=== PATIENT | male | born 1945 | race Caucasian/White ===

== ENCOUNTER 2018-04-10 11:09 | Outpatient (CLI) | payer MEDICARE, SELFPAY ==
[2018-04-10 13:35] LABS: Cholesterol 141 mg/dL (50-200); HDL Cholesterol 55 mg/dL (40-60); LDL CHOLESTEROL 80 mg/dL (<100); Triglyceride 70 mg/dL (30-150)
[2018-04-10 14:11] LABS: Hemoglobin A1C 5.4 % (4.5-6.2)
== END 2018-04-10 11:29 ==
PROVIDERS: PCP Emergency Medicine; Visit Provider Emergency Medicine
DX: R73.01 Impaired fasting glucose (principal); I25.10 Atherosclerotic heart disease of native coronary artery without angina pectoris
CPT/HCPCS: 36415; 80061; 83721; 83036

== ENCOUNTER 2018-04-16 01:16 | Outpatient (CLI) | payer MEDICARE, SELFPAY ==
--- NOTE | 2018-04-16 14:42 | DI.COMBO_ITS ---
SYMPTOMS/DIAGNOSIS: RT BREAST MASS, N63.0 MAMMOGRAM AND RIGHT BREAST ULTRASOUND: A marker was placed over the area of the palpable abnormality at the medial edge of the right breast. The breasts are composed of fatty density tissue, breast density Category A. No suspicious masses or suspicious microcalcifications are seen. No abnormality is seen in the area marked. Right breast ultrasound shows a small ovoid hypoechoic nodule measuring 1.5 x 1.7 x 0.6 cm, consistent with a small lipoma. There is blood flow within it. No mass or fluid collection is seen. IMPRESSION: Category 2, negative mammogram and right breast ultrasound with benign findings of a small lipoma. MQSA ASSESSMENT OF FINDINGS: Negative with benign findings. Category 2. Patient will receive a letter notifying them of these results. BI-RAD category A. The breasts are almost entirely fatty.
== END 2018-04-16 01:36 ==
PROVIDERS: PCP Emergency Medicine; Visit Provider Emergency Medicine
DX: N63.10 Unspecified lump in the right breast, unspecified quadrant (principal); D24.1 Benign neoplasm of right breast
CPT/HCPCS: 76642; 77062; 77066; G0279

== ENCOUNTER 2018-09-29 10:23 | Outpatient (CLI) | payer MEDICARE, SELFPAY ==
[2018-09-30 10:12] LABS: PSA, Screening 1.8 ng/ml (0-6.5)
== END 2018-09-29 10:43 ==
PROVIDERS: PCP Emergency Medicine; Visit Provider Emergency Medicine
DX: Z12.5 Encounter for screening for malignant neoplasm of prostate (principal)
CPT/HCPCS: 36415; 84153

== ENCOUNTER 2018-11-23 08:23 | Day surgery (SDC) | payer MEDICARE, SELFPAY ==
--- NOTE | 2018-11-22 17:40 | W.PIPPEYE ---
History of Present Illness Chief Complaint: Progressive decreased vision, left eye Narrative: The patient is a 73-year-old male with history of progressive decreased vision in both eyes at both distance and near. He has significant difficulty with glare from headlights at night. On examination he was noted to have moderately advanced bilateral nuclear cataracts with uncorrected vision of 20/25 OD, 20/200 OS. The option of cataract surgery was offered to the patient and he wished to proceed. NOTE: The Chief Complaint, HPI, Past Medical History, Past Surgical History, Family History, Social History, Medications, and complete Ophthalmic Exam with detailed Assessment and Plan have already been documented in the patient's outpatient ophthalmic record and are not covered again in detail here. PFSH Family History Mother Essential hypertension Heart disease Myocardial infarction Father Diabetes Essential hypertension Neoplasm Stroke Brother Essential hypertension Son No problems noted. Daughter No problems noted. Family History Corneal dystrophy Social History Smoking/Tobacco Use Status: Former Tobacco Use Alcohol Intake: current Alcohol Intake frequency: a few times a week Drug use: Never Substance use type: does not use Household members: other Details: 2 What type of physical activity do you participate in: none Do you feel safe at home: Yes Do you feel safe in your relationship?: Yes Meds Home Medications Medication Instructions Recorded Confirmed Type aspirin 81 mg PO DAILY tab-cap 01/06/13 11/18/18 History amlodipine 5 mg PO DAILY #90 tab-cap 12/10/17 11/18/18 Rx metoprolol succinate [Toprol Xl] 25 mg PO DAILY #90 tab-cap 12/23/17 11/18/18 Rx doxazosin [Cardura] 4 mg PO HS #90 tab-cap 01/06/18 11/18/18 Rx metoprolol succinate ER 50 mg 50 mg PO DAILY 03/24/18 11/18/18 History tablet,extended release 24 hr magnesium 250 mg tablet 250 mg PO DAILY 04/10/18 11/18/18 History omeprazole 20 mg capsule,delayed 20 mg PO DAILY #90 tab-cap 09/09/18 11/18/18 Rx release atorvastatin 40 mg tablet 40 mg PO HS #90 tab 10/08/18 11/18/18 Rx Allergies Allergy/AdvReac Type Severity Reaction Status Date / Time oxycodone AdvReac Mild NAUSEA/VOMI Verified 11/18/18 11:08 TING Exam OCULAR EXAM:: Most recent ocular examination is significant for uncorrected vision of 20/25 OD, 20/200 OS. Intraocular pressure is 14 OD, 13 OS. Extraocular motility is normal. Pupils equal, round, and reactive without afferent pupillary defect slit-lamp examination is significant for pupils dilating to 5.5 mm OU. 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 A 3+ brunescent nuclear cataract is present OU. Dilated funduscopic examination shows disc cupping of 0.4 OU with good color. The optic nerves have good perfusion and normal color. The retinal vasculature is normal without significant tortuosity or abnormality. The maculas are normal in appearance with normal contour and foveal reflex appropriate for age. The peripheral retina and vitreous are normal. BRIGHTNESS ACUITY TESTING (BAT):: Brightness acuity testing of the left eye off is 20/30. On low and medium is 20/125. On high is 20/200. Assessment and Plan (1) Nuclear sclerotic cataract of left eye: Current visit: No Status: Acute Assessment: Visually significant cataract, left eye. Plan: Cataract extraction with intraocular lens implantation, left eye Note: NOTE:: The details of the planned surgery, including the risks, indications,limitations,expectations,outcome and possible complications were explained to the patient. The patient understands the complications including, but not limited to: infection, hemorrhage, posterior dislocation of the lens or nuclear fragments which may require the intervention of a vitreoretinal surgeon, possible loss of the eye, or from anesthetic complications. The patient has been made aware of the option of not having surgery, that vision following surgery may not be equal to that prior to surgery, and that the planned surgery may not achieve the intended results. Following this discussion, which the patient appeared to understand, the patient wishes to proceed with cataract surgery with lens implantation of the affected eye to improve and maximize vision.
[2018-11-23 08:41] VITALS: BP 150/77; PULSE 69; RESP 16; TEMP 36.6; O2SAT 96
[2018-11-23] MEDS: Tetracaine 0.5% 4 ML BTL OS ×4 (08:45→09:54)
[2018-11-23] MEDS: Tropicam./Phenyleph. (1/2.5%) 5 ML BTL OS ×3 (08:46→08:56)
--- NOTE | 2018-11-23 09:43 | W.PM.DSUDISC ---
Discharge Plan Disposition Patient Disposition: HOME Condition: Stable Discharge Details Attending Provider: Seth Keller Primary Care Provider: Oliver Gandhi Home Meds and New Rx's Prescriptions: No Action magnesium 250 mg tablet 250 mg PO DAILY RF: 0 aspirin 81 MG tablet,delayed release (DR/EC) 81 mg PO DAILY RF: 0 amlodipine 5 MG tablet 5 mg PO DAILY Qty: 90 RF: 4 metoprolol succinate [Toprol XL] 25 MG tablet extended release 24 hr 25 mg PO DAILY Qty: 90 RF: 3 doxazosin [Cardura] 4 MG tablet 4 mg PO HS Qty: 90 RF: 4 metoprolol succinate 50 mg tablet extended release 24 hr 50 mg PO DAILY RF: 0 omeprazole 20 mg capsule,delayed release(DR/EC) 20 mg PO DAILY Qty: 90 RF: 4 atorvastatin [Lipitor] 40 mg tablet 40 mg PO HS Qty: 90 RF: 4 Discharge Instructions Stand Alone Forms: Post-op Topical Cataract, Shani Palomino (DSU) Discharge Orders Discharge Orders: Discharge Order (Routine); Ordered 11/23/18 Ordered By: Seth Keller DS: Diagnosis Discharge Diagnosis (1) Nuclear sclerotic cataract of left eye: Status: Resolved (2) Status post cataract extraction and insertion of intraocular lens of left eye: Status: Chronic
--- NOTE | 2018-11-23 09:44 | ROE_ITS ---
Date of service: 11/23/18 Operative Note PRE-OP DIAGNOSIS: Cataract, left eye POST-OP DIAGNOSIS: same PROCEDURE: Cataract extraction using phacoemulsification with intraocular lens implant, left eye SURGEON: Seth Keller ANESTHESIA: MAC and local (sub-tenon's anesthetic infiltration) PATHOLOGY: none sent COMPLICATIONS: None Patient was transported to: same day Patient's condition: stable Implants: Luis [employer] / [employer] Tecnis [id number] Indications: Progressive decreased vision due to cataract, left eye Procedure Description: CATARACT SURGERY OPERATIVE REPORT PREOPERATIVE DIAGNOSIS: Dense nuclear cataract, left eye POSTOPERATIVE DIAGNOSIS: Same OPERATION: Cataract extraction using phacoemulsification with posterior chamber intraocular lens implant, left eye. IOL: IOL Pharmacy Laboratory Technician/Model: [employer] / PANKAJ Tecnis [id number] IOL Power: + 19.50 diopters IOL Serial Number: [id number] Optic Diameter: 6.0mm Haptic/Overall Diameter: 13.0mm PHACO INFO: Paramjit [employer] Vision System with OZil and Active Fluidics Cumulative Dispersed Energy (CDE): 21.43 seconds SURGEON: Seth Keller MD, EILEEN ANESTHESIA: Monitored Anesthesia Care (MAC), with local sub-tenon's anesthetic infiltration COMPLICATIONS: None SPECIMENS: None INDICATIONS FOR PROCEDURE: The patient is a 73-year-old gentleman who presented with complaints of diminished visual acuity in his left eye. He is noted to have a dense nuclear cataract with visual acuity of 20/200. The option of cataract surgery was offered to the patient and he wished to proceed. PROCEDURE: The correct surgical eye was identified and marked as the left eye and the pupil was dilated in the preoperative area using mydriatics and cyclo plegics. The dilated pupil size was 6.5 mm. Oral sedation was administered in the form of an Imprimis MKO Melt (midazolam 3mg/ketamine 25mg/ondansetron 2mg). The patient was brought to the operating room where cardiopulmonary monitoring was instituted and surgical time-out was performed, confirming the correct operative eye and IOL power. Topical anesthesia was administered and ophthalmic povidone-iodine 5% was instilled into the conjunctival fornices. Lidocaine gel was applied to the cornea and the j carlos-ocular area was prepped with Betadine 10% solution and draped in the usual sterile fashion for intraocular surgery, including an aperture drape. A Tegaderm transparent film dressing was cut in half and used to cover the lashes and lid margins. Care was taken to sequester the lashes and lid margins under the Tegaderm dressing. A lid speculum was placed between the lids of the operative eye and the Jolly-Tess operating microscope was maneuvered into position. Kuldeep scissors were then used to make a conjunctival buttonhole approximately 6mm posterior to the limbus in the inferonasal quadrant. Blunt dissection was carried out to expose bare sclera, and a blunt-tipped sub-tenon?s anesthesia cannula was introduced and passed posteriorly along the globe where non- preserved plain lidocaine was injected into posterior sub-Tenon?s space. A sideport knife was used to make a paracentesis port superior/superiortemporal, and the anterior chamber was filled with Viscoat. A 2.4mm keratome knife was used to create a half-thickness groove at the limbus and then to construct a t hree-plane near-clear corneal tunnel extending 2.0mm into clear cornea in the temporal position. . A flap was raised on the anterior capsule and capsulorhexis forceps were used to complete a continuous curvilinear capsulorhexis of []mm. Balanced salt solution was then used to perform cortical cleaving hydrodissection and nuclear hydrodelineation until the lens could be freely rotated within the capsular bag. The lens nucleus was then disassembled and removed within the capsular bag and iris plane using phacoemulsification. Residual cortical material was removed using the 45-degree angled silicone I/A tip with 0.3mm port. The posterior capsule was carefully polished to remove as much residual lens epithelial cells as safely possible. The capsular bag was then inflated and the anterior chamber deepened with ProVisc. The lens implant described above was inserted into the capsular bag using the PANKAJ [employer] Injector. A Kuglen hook was used to dial the IOL into position. Residual viscoelastic was then removed first from posterior to the IOL, then from the anterior chamber using the I/A handpiece. The lens implant was noted to center nicely within the capsular bag. The incisions were stromally hydrated, and the anterior chamber was reformed using BSS. Then 0.4cc of moxifloxacin 1.5mg/ml were injected into the capsular bag and anterior chamber. The incisions were checked with a Weck spear and found to be secure. Several drops of ophthalmic povidone-iodine 5% were then applied to the eye followed by two drops of Imprimis combination prednisolone/gatifloxacin/bromfenac solution. The drapes were removed and a clear plastic protective eye shield was placed over the eye. The patient was then returned to Same Day Surgery in stable condition.
[2018-11-23] MEDS: Lidocaine 2% Jelly 6 ML SYR (09:54)
[2018-11-23] MEDS: Povidone-Iodine Ophth 30 ML BTL (09:54)
[2018-11-23] MEDS: Balanced Salt Soln.-PLUS 500 ML BAG (09:59)
[2018-11-23] MEDS: Lidocaine 1% Pres-Free 5 ML VIAL (10:00)
[2018-11-23] MEDS: Duovisc Viscoelastic System EACH 1 EACH (10:01)
[2018-11-23 10:50] VITALS: BP 116/67; PULSE 61; RESP 16; TEMP 37.1; O2SAT 94
== END 2018-11-23 11:11 | disposition home or self-care (01) ==
PROVIDERS: PCP Emergency Medicine; Visit Provider Ophthalmology
PROC: (CPT 66984; principal; 2018-11-23 10:30)
DX: H25.12 Age-related nuclear cataract, left eye (principal); I10 Essential (primary) hypertension; K21.9 Gastro-esophageal reflux disease without esophagitis
CPT/HCPCS: 66984; V2632

== ENCOUNTER 2018-12-07 09:11 | Day surgery (SDC) | payer MEDICARE, SELFPAY ==
--- NOTE | 2018-12-06 18:12 | POEE_ITS ---
History of Present Illness Chief Complaint: Progressive decreased vision, right eye Narrative: The patient is a 73-year-old male with history of progressive decreased vision in both eyes at both distance and near. He notes significant difficulty with glare from driving at night. 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 He was significantly symptomatic that he desired cataract surgery which was performed in the left eye on 11/23/2018. Postoperatively he has regained uncorrected vision of 20/20 in the left eye. He now presents for cataract surgery in the right eye. NOTE: The Chief Complaint, HPI, Past Medical History, Past Surgical History, Family History, Social History, Medications, and complete Ophthalmic Exam with detailed Assessment and Plan have already been documented in the patient's outpatient ophthalmic record and are not covered again in detail here. PFSH Family History Mother Essential hypertension Heart disease Myocardial infarction Father Diabetes Essential hypertension Neoplasm Stroke Brother Essential hypertension Son No problems noted. Daughter No problems noted. Family History Corneal dystrophy Social History Smoking/Tobacco Use Status: Former Tobacco Use Alcohol Intake: current Alcohol Intake frequency: a few times a week Drug use: Never Substance use type: does not use Details: alcohol last night Household members: other Details: 2 What type of physical activity do you participate in: none Do you feel safe at home: Yes Do you feel safe in your relationship?: Yes Meds Home Medications Medication Instructions Recorded Confirmed Type aspirin 81 mg PO DAILY tab-cap 01/06/13 11/23/18 History amlodipine 5 mg PO DAILY #90 tab-cap 12/10/17 11/18/18 Rx metoprolol succinate [Toprol Xl] 25 mg PO DAILY #90 tab-cap 12/23/17 11/18/18 Rx doxazosin [Cardura] 4 mg PO HS #90 tab-cap 01/06/18 11/18/18 Rx metoprolol succinate ER 50 mg 50 mg PO DAILY 03/24/18 11/18/18 History tablet,extended release 24 hr magnesium 250 mg tablet 250 mg PO DAILY 04/10/18 11/23/18 History omeprazole 20 mg capsule,delayed 20 mg PO DAILY #90 tab-cap 09/09/18 11/18/18 Rx release atorvastatin 40 mg tablet 40 mg PO HS #90 tab 10/08/18 11/18/18 Rx Allergies Allergy/AdvReac Type Severity Reaction Status Date / Time oxycodone AdvReac Mild NAUSEA/VOMI Verified 11/23/18 08:37 TING Exam OCULAR EXAM:: Most recent ocular examination is significant for uncorrected vision of 20/25 OD, 20/20 OS. Intraocular pressure is 14 OD, 13 OS. Extraocular motility is normal. Pupils equal, round, and reactive without afferent pupillary defect. Slit-lamp examination is significant for fine cornea l endothelial guttata. A well-positioned PCIOL is present OS. A 3+ nuclear with 1+ Nessen cataract is present OD. Dilated funduscopic examination shows disc cupping of 0.4 OD 0.5 OS with good color. The vessels, macula, peripheral retina and vitreous is normal OU. BRIGHTNESS ACUITY TESTING (BAT):: Brightness acuity testing of the right eye off is 20/25. Low is 20/30. Medium is 20/30. High is 20/40. Assessment and Plan (1) Nuclear sclerotic cataract of right eye: Current visit: No Status: Acute Assessment: Visually significant cataract, right eye. Plan: Cataract extraction with intraocular lens implantation, right eye Note: NOTE:: The details of the planned surgery, including the risks, indications,limitations,expectations,outcome and possible complications were explained to the patient. The patient understands the complications including, but not limited to: infection, hemorrhage, posterior dislocation of the lens or nuclear fragments which may require the intervention of a vitreoretinal surgeon, possible loss of the eye, or from anesthetic complications. The patient has been made aware of the option of not having surgery, that vision following surgery may not be equal to that prior to surgery, and that the planned surgery may not achieve the intended results. Following this discussion, which the patient appeared to understand, the patient wishes to proceed with cataract surgery with lens implantation of the affected eye to improve and maximize vision.
[2018-12-07 09:43] VITALS: BP 149/76; PULSE 67; RESP 16; TEMP 36.6; O2SAT 95
[2018-12-07] MEDS: Tetracaine 0.5% 4 ML BTL OD ×4 (09:47→10:57)
[2018-12-07] MEDS: Tropicam./Phenyleph. (1/2.5%) 5 ML BTL OD ×3 (09:48→09:57)
[2018-12-07] MEDS: Lidocaine 2% Jelly 6 ML SYR (10:57)
[2018-12-07] MEDS: Povidone-Iodine Ophth 30 ML BTL ×2 (10:57→11:30)
[2018-12-07] MEDS: Duovisc Viscoelastic System EACH 1 EACH (11:03)
[2018-12-07] MEDS: Balanced Salt Soln.-PLUS 500 ML BAG (11:03)
[2018-12-07] MEDS: Lidocaine 1% Pres-Free 5 ML VIAL (11:03)
--- NOTE | 2018-12-07 11:35 | W.PM.DSUDISC ---
Discharge Plan Disposition Patient Disposition: HOME Condition: Stable Discharge Details Attending Provider: Seth Keller Primary Care Provider: Oliver Gandhi Home Meds and New Rx's Prescriptions: No Action magnesium 250 mg tablet 250 mg PO DAILY RF: 0 aspirin 81 MG tablet,delayed release (DR/EC) 81 mg PO DAILY RF: 0 amlodipine 5 MG tablet 5 mg PO DAILY Qty: 90 RF: 4 metoprolol succinate [Toprol XL] 25 MG tablet extended release 24 hr 25 mg PO DAILY Qty: 90 RF: 3 doxazosin [Cardura] 4 MG tablet 4 mg PO HS Qty: 90 RF: 4 metoprolol succinate 50 mg tablet extended release 24 hr 50 mg PO DAILY RF: 0 omeprazole 20 mg capsule,delayed release(DR/EC) 20 mg PO DAILY Qty: 90 RF: 4 atorvastatin [Lipitor] 40 mg tablet 40 mg PO HS Qty: 90 RF: 4 Discharge Instructions Stand Alone Forms: Post-op Topical Cataract, Shani Palomino (DSU) Discharge Orders Discharge Orders: Discharge Order (Routine); Ordered 12/07/18 Ordered By: Seth Keller DS: Diagnosis Discharge Diagnosis (1) Nuclear sclerotic cataract of right eye: Status: Resolved (2) Status post cataract extraction and insertion of intraocular lens of right eye: Status: Chronic
--- NOTE | 2018-12-07 11:37 | W.PM.OP ---
Date of service: 12/07/18 Time of Service: 11:37 Operative Note PRE-OP DIAGNOSIS: Cataract, right eye PROCEDURE: Cataract extraction using phacoemulsification with intraocular lens implant, right eye SURGEON: Seth Keller ANESTHESIA: MAC and local (sub-tenon's anesthetic infiltration) ESTIMATED BLOOD LOSS: 0 PATHOLOGY: none sent COMPLICATIONS: None Patient was transported to: same day Patient's condition: stable Implants: Luis [employer] / [employer] Tecnis ZCB00 intraocular lens Indications: Progressive decreased vision due to cataract, right eye Procedure Description: CATARACT SURGERY OPERATIVE REPORT PREOPERATIVE DIAGNOSIS: Dense nuclear cataract, right eye POSTOPERATIVE DIAGNOSIS: Same OPERATION: Cataract extraction using phacoemulsification with posterior chamber intraocular lens implant, right eye. 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 He has become increasingly symptomatic from cataract that he desires cataract surgery and attempt to improve and maximize his vision. He has already undergone cataract surgery in the left eye and is doing well postoperatively. He now presents for cataract surgery in the right eye. PROCEDURE: The correct surgical eye was identified and marked as the right eye and the pupil was dilated in the preoperative area using mydriatics and cycloplegics. The dilated pupil size was 6.5 mm. Oral sedation was administered in the form of an Imprimis MKO Melt (midazolam 3mg/ketamine 25mg/ondansetron 2mg). The patient was brought to the operating room where cardiopulmonary monitoring was instituted and surgical time-out was performed, confirming the correct operative eye and IOL power. Topical anesthesia was administered and ophthalmic povidone-iodine 5% was instilled into the conjunctival fornices. Lidocaine gel was applied to the cornea and the j carlos-ocular area was prepped with Betadine 10% solution and draped in the usual sterile fashion for intraocular surgery, including an aperture drape. A Tegaderm transparent film dressing was cut in half and used to cover the lashes and lid margins. Care was taken to sequester the lashes and lid margins under the Tegaderm dressing. A lid speculum was placed between the lids of the operative eye and the Jolly-Tess operating microscope was maneuvered into position. Kuldeep scissors were then used to make a conjunctival buttonhole approximately 6mm posterior to the limbus in the inferonasal quadrant. Blunt dissection was carried out to expose bare sclera, and a blunt-tipped sub-tenon?s anesthesia cannula was introduced and passed posteriorly along the globe where non-preserved plain lidocaine was injected into posterior sub-Tenon?s space. A sideport knife was used to make a paracentesis port inferiortemporally, and the anterior chamber was filled with Viscoat. A 2.4mm keratome knife was used to create a half-thickness groove at the limbus and then to construct a three-plane near-clear corneal tunnel extending 2.0mm into clear cornea in the superiortemporal position. . A flap was raised on the anterior capsule and capsulorhexis forceps were used to complete a continuous curvilinear capsulorhexis of 5.0 mm. Balanced salt solution was then used to perform cortical cleaving hydrodissection and nuclear hydrodelineation until the lens could be freely rotated within the capsular bag. The lens nucleus was then disassembled and removed within the capsular bag and iris plane using phacoemulsification. Additional Viscoat was used during removal of the nuclear quadrants to protect the corneal endothelium. Residual cortical material was removed using the I/A handpiece. The posterior capsule was carefully polished to remove as much residual lens epithelial cells as safely possible. The capsular bag was then inflated and the anterior chamber deepened with Provisc. The lens implant described above was inserted into the capsular bag using the PANKAJ [place] Injector. A Kuglen hook was used to dial the IOL into position. Residual viscoelastic was then removed first from posterior to the IOL, then from the anterior chamber using the I/A handpiece. The lens implant was noted to center nicely within the capsular bag. The incisions were stromally hydrated, and the anterior chamber was reformed using BSS. Then 0.4cc of moxifloxacin 1.5mg/ml were injected into the capsular bag and anterior chamber. The incisions were checked with a Weck spear and found to be secure. Several drops of ophthalmic povidone-iodine 5% were then applied to the eye followed by two drops of Imprimis combination prednisolone/gatifloxacin/bromfenac solution. The drapes were removed and a clear plastic protective eye shield was placed over the eye. The patient was then returned to Same Day Surgery in stable condition.
--- NOTE | 2018-12-07 11:40 | ROE_ITS ---
Date of service: 12/07/18 Time of Service: 11:37 Operative Note PRE-OP DIAGNOSIS: Cataract, right eye PROCEDURE: Cataract extraction using phacoemulsification with intraocular lens implant, right eye SURGEON: Seth Keller ANESTHESIA: MAC and local (sub-tenon's anesthetic infiltration) ESTIMATED BLOOD LOSS: 0 PATHOLOGY: none sent COMPLICATIONS: None Patient was transported to: same day Patient's condition: stable Implants: [employer] / [employer] Tecnis ZCB00 intraocular lens Indications: Progressive decreased vision due to cataract, right eye Procedure Description: CATARACT SURGERY OPERATIVE REPORT PREOPERATIVE DIAGNOSIS: Dense nuclear cataract, right eye POSTOPERATIVE DIAGNOSIS: Same OPERATION: Cataract extraction using phacoemulsification with posterior chamber intraocular lens implant, right eye. IOL: IOL Quality Management Coordinator/Model: [employer] / PANKAJ Tecnis ZCB00 IOL Power: + 20.50 diopters IOL Serial Number: [id number] Optic Diameter: 6.0mm Haptic/Overall Diameter: 13.0mm PHACO INFO: Paramjit Onyvaxurion Vision System with OZil and Active [employer]uidics Cumulative Dispersed Energy (CDE): 22.52 seconds SURGEON: Seth Keller MD, EILEEN ANESTHESIA: Monitored Anesthesia Care (MAC), with local sub-tenon's anesthetic infiltration COMPLICATIONS: None SPECIMENS: None INDICATIONS FOR PROCEDURE: The patient is a 73-year-old male with history of dense bilateral nuclear cataracts as well as corneal endothelial dystrophy. He has become increasingly symptomatic from cataract that he desires cataract surgery and attempt to improve and maximize his vision. He has already undergone cataract surgery in the left eye and is doing well postoperatively. He now presents for cataract surgery in the right eye. PROCEDURE: The correct surgical eye was identified and marked as the right eye and the pupil was dilated in the preoperative area using mydriatics and cycloplegics. The dilated pupil size was 6.5 mm. Oral sedation was administered in the form of an Imprimis MKO Melt (midazolam 3mg/ketamine 25mg/ondansetron 2mg). The patient was brought to the operating room where cardiopulmonary monitoring was instituted and surgical time-out was performed, confirming the correct operative eye and IOL power. Topical anesthesia was administered and ophthalmic povidone-iodine 5% was instilled into the conjunctival fornices. Lidocaine gel was applied to the cornea and the j carlos-ocular area was prepped with Betadine 10% solution and draped in the usual sterile fashion for intraocular surgery, including an aperture drape. A Tegaderm transparent film dressing was cut in half and used to cover the lashes and lid margins. Care was taken to sequester the lashes and lid margins under the Tegaderm dressing. A lid speculum was placed between the lids of the operative eye and the Jolly-Tess operating microscope was maneuvered into position. Kuldeep scissors were then used to make a conjunctival buttonhole approximately 6mm posterior to the limbus in the inferonasal quadrant. Blunt dissection was carried out to expose bare sclera, and a blunt-tipped sub-tenon?s anesthesia cannula was introduced and passed posteriorly along the globe where non- preserved plain lidocaine was injected into posterior sub-Tenon?s space. A sideport knife was used to make a paracentesis port inferiortemporally, and the anterior chamber was filled with Viscoat. A 2.4mm keratome knife was used to create a half-thickness groove at the limbus and then to construct a three-plane near-clear corneal tunnel extending 2.0mm into clear cornea in the superiortemporal position. . A flap was raised on the anterior capsule and capsulorhexis forceps were used to complete a continuous curvilinear capsulorhexis of 5.0 mm. Balanced salt solution was then used to perform cortical cleaving hydrodissection and nuclear hydrodelineation until the lens could be freely rotated within the capsular bag. The lens nucleus was then disassembled and removed within the capsular bag and iris plane using phacoemulsification. Additional Viscoat was used during removal of the nuclear quadrants to protect the corneal endothelium. Residual cortical material was removed using the I/A handpiece. The posterior capsule was carefully polished to remove as much residual lens epithelial cells as safely possible. The capsular bag was then inflated and the anterior chamber deepened with Provisc. The lens implant described above was inserted into the capsular bag using the PANKAJ Bois Forte Injector. A Kuglen hook was used to dial the IOL into position. Residual viscoelastic was then removed first from posterior to the IOL, then from the anterior chamber using the I/A handpiece. The lens implant was noted to center nicely within the capsular bag. The incisions were stromally hydrated, and the anterior chamber was reformed using BSS. Then 0.4cc of moxifloxacin 1.5mg/ml were injected into the capsular bag and anterior chamber. The incisions were checked with a Weck spear and found to be secure. Several drops of ophthalmic povidone-iodine 5% were then applied to the eye followed by two d rops of Imprimis combination prednisolone/gatifloxacin/bromfenac solution. The drapes were removed and a clear plastic protective eye shield was placed over the eye. The patient was then returned to Same Day Surgery in stable condition.
[2018-12-07 12:00] VITALS: BP 129/71; PULSE 65; RESP 16; TEMP 36.2; O2SAT 95
== END 2018-12-07 12:10 | disposition home or self-care (01) ==
PROVIDERS: PCP Emergency Medicine; Visit Provider Ophthalmology
PROC: (CPT 66984; principal; 2018-12-07 11:30)
DX: H25.11 Age-related nuclear cataract, right eye (principal); Z98.42 Cataract extraction status, left eye; Z96.1 Presence of intraocular lens; I10 Essential (primary) hypertension; K21.9 Gastro-esophageal reflux disease without esophagitis
CPT/HCPCS: 66984; V2632

== ENCOUNTER 2019-05-19 01:05 | Outpatient (CLI) | payer MEDICARE, SELFPAY ==
[2019-05-19 10:45] LABS: Anion Gap 7.8 mmol/L (3-11); BUN 10 mg/dL (7-18); C-Reactive Protein 0.24 mg/dL (0.0-0.3); CO2 28.2 mmol/L (21.0-32.0); CREATININE 0.87 mg/dL (0.70-1.30); Calcium 8.7 mg/dL (8.5-10.1); Chloride 106 mmol/L (98-107); Creatine Kinase 165 U/L (39-308); Glucose 173 mg/dL (70-100); Potassium 3.9 mmol/L (3.5-5.1); Sodium 142 mmol/L (136-145)
[2019-05-19 12:00] LABS: ESR 9 mm/hr (1-20)
== END 2019-05-19 01:25 ==
PROVIDERS: PCP Emergency Medicine; Visit Provider Emergency Medicine
DX: I10 Essential (primary) hypertension (principal); M79.10 Myalgia, unspecified site
CPT/HCPCS: 36415; 80048; 82550; 85652; 86140

== ENCOUNTER 2019-07-30 00:11 | Outpatient (CLI) | payer MEDICARE, SELFPAY ==
[2019-07-30 10:24] LABS: Hemoglobin A1C 5.6 % (3.8-5.6)
[2019-07-30 10:44] LABS: Calculated LDL 88 mg/dL; Cholesterol 146 mg/dL (<200); HDL Cholesterol 46 mg/dL (40-60); Triglyceride 61 mg/dL (<150)
== END 2019-07-30 00:31 ==
PROVIDERS: PCP Emergency Medicine; Visit Provider Emergency Medicine
DX: E11.9 Type 2 diabetes mellitus without complications (principal)
CPT/HCPCS: 36415; 80061; 83036

== ENCOUNTER 2019-08-04 12:23 | Outpatient (CLI) | payer MEDICARE, SELFPAY ==
--- NOTE | 2019-08-04 | DI.RAD_ITS ---
EXAM: XR FOOT RT COMPLETE INDICATION: pain COMPARISON: No exams were available for comparison TECHNIQUE: 2D digital imaging was performed. FINDINGS: Hardware is noted in the calcaneus. There are degenerative changes at the talocalcaneal joint. The re are also degenerative changes of the tarsometatarsal joints and 1st MTP joint. Bones appear osteo penic. IMPRESSION: Postsurgical and degenerative changes.
== END 2019-08-04 12:43 ==
PROVIDERS: PCP Emergency Medicine; Referring Provider Emergency Medicine; Visit Provider Orthopaedic Surgery
DX: M79.671 Pain in right foot (principal); M85.88 Other specified disorders of bone density and structure, other site; M19.071 Primary osteoarthritis, right ankle and foot; I10 Essential (primary) hypertension
CPT/HCPCS: 99214; 73630

== ENCOUNTER 2019-12-16 02:26 | Outpatient (CLI) | payer MEDICARE, SELFPAY ==
[2019-12-16 14:54] LABS: Absolute Basophil Count 0.07 k/cumm (0.0-0.2); Absolute Eosinophil Count 0.39 k/cumm (0.0-0.7); Absolute Lymphocyte Count 1.82 k/cumm (1.2-3.4); Absolute Monocyte Count 0.67 k/cumm (0.11-0.7); Absolute Neutrophil Count 4.28 k/cumm (1.2-6.7); Eosinophils % 5.4; HCT 39.5 % (40.0-50.0); Lymphocytes % 25.2; Mean Corp. HGB Concentration 32.9 g/dL (32.0-36.0); Mean Corpuscular Hemoglobin 28.8 pg (27.0-33.0); Mean Corpuscular Volume 87.6 fL (80-95); Mean Platelet Volume 9.3 fL (8.0-11.0); Monocytes % 9.3; Neutrophils % 59.1; Platelet Count 272 x1000/uL (130-400); RBC 4.51 m/cumm (4.50-6.00); White Blood Cell Count 7.23 k/cumm (4.4-10.8)
[2019-12-16 15:53] LABS: ESR 19 mm/hr (1-20)
[2019-12-16 15:56] LABS: ALT 22 U/L (16-63); AST 20 U/L (15-37); Albumin 3.4 g/dL (3.4-5.0); Alkaline Phosphatase 164 U/L (46-116); Anion Gap 6.2 mmol/L (3-11); BUN 14 mg/dL (7-18); Bilirubin, Total 0.5 mg/dL (0.2-1.0); C-Reactive Protein 0.86 mg/dL (0.0-0.3); CO2 29.8 mmol/L (21.0-32.0); CREATININE 0.88 mg/dL (0.70-1.30); Calcium 8.6 mg/dL (8.5-10.1); Chloride 106 mmol/L (98-107); Creatine Kinase 119 U/L (39-308); Glucose 89 mg/dL (74-106); Potassium 4.1 mmol/L (3.5-5.1); Sodium 142 mmol/L (136-145); Total Protein 6.2 g/dL (6.4-8.2)
[2019-12-17 08:37] LABS: Cyclic Citrullinated Peptide <2.5 U/mL (<5.0)
[2019-12-17 10:17] LABS: Lyme Ab w Rflx to Lyme Confirm Negative (Negative)
== END 2019-12-16 02:46 ==
PROVIDERS: PCP Emergency Medicine; Visit Provider Emergency Medicine
DX: M79.10 Myalgia, unspecified site (principal); M25.50 Pain in unspecified joint; I25.10 Atherosclerotic heart disease of native coronary artery without angina pectoris
CPT/HCPCS: 36415; 80053; 82550; 85652; 86200; 85025; 86140; 86618

== ENCOUNTER 2019-12-20 02:09 | Outpatient (CLI) | payer MEDICARE, SELFPAY ==
[2019-12-20 16:30] LABS: Alkaline Phosphatase 166 U/L (46-116)
[2019-12-20 16:43] LABS: GGT 50 U/L (15-85)
== END 2019-12-20 02:29 ==
PROVIDERS: PCP Emergency Medicine; Visit Provider Emergency Medicine
DX: R74.8 Abnormal levels of other serum enzymes (principal)
CPT/HCPCS: 36415; 82977; 84075

== ENCOUNTER 2020-04-05 10:38 | Outpatient (CLI) | payer MEDICARE, SELFPAY ==
--- NOTE | 2020-04-05 09:45 | DI.RAD_ITS ---
EXAM: XR KNEE RT 2V AP,LAT CLINICAL HISTORY: pain TECHNIQUE: 2D digital imaging was performed. COMPARISON: CR RIGHT KNEE LIMITED 1 OR 2 VIEW from 04/20/2015 FINDINGS: Vascular clips are seen at the posterior medial soft tissues. There is mild narrowing of the medial femoral tibial joint. There is minimal periarticular spurring. There is spurring at the quadriceps insertion on the patella. Vascular calcifications are seen. IMPRESSION: Mild degenerative changes of the right knee.
--- NOTE | 2020-04-05 09:45 | DI.RAD_ITS ---
EXAM: XR HIP RT COMPLETE AP PELVIS INDICATION: pain. COMPARISON: No exams were available for comparison TECHNIQUE: 2D digital imaging was performed. FINDINGS: There is joro-sd-scrmkykn narrowing of the superior hip joint space. There is mild acetabular spurri ng. There is mild spurring from the margin of the femoral neck. Subchondral cyst is seen in the sup erior acetabulum. Vascular calcifications are noted. IMPRESSION: Moderate degenerative changes of right hip. DATA REPOSITORY: RADIATION DOSE DELIVERED:
== END 2020-04-05 10:58 ==
PROVIDERS: PCP Emergency Medicine; Referring Provider Emergency Medicine; Visit Provider Orthopaedic Surgery
DX: M17.11 Unilateral primary osteoarthritis, right knee (principal); M25.561 Pain in right knee; M16.11 Unilateral primary osteoarthritis, right hip; I10 Essential (primary) hypertension
CPT/HCPCS: 99214; 73502; 73560

== ENCOUNTER 2020-04-17 00:37 | Outpatient (CLI) | payer MEDICARE, SELFPAY ==
--- NOTE | 2020-04-17 07:45 | DI.MRI_ITS ---
EXAM: MR LOWER JOINT RT WO CLINICAL HISTORY: RT KNEE PAIN,INTERNAL DERANGEMENT,M23.91,M25.561. TECHNIQUE: Multiplanar multisequence MRI was performed. COMPARISON: CR XR KNEE RT 2V AP,LAT from 04/05/2020 FINDINGS: BONES: There is no fracture or contusion pattern. Mild subchondral edema in the medial femoral condyl e. JOINTS: Articular cartilage is unremarkable. No effusion is present. TENDONS: Extensor mechanism: Unremarkable. Medial retinaculum: Unremarkable. Lateral retinaculum: Unremarkable. Popliteus: Unremarkable. MUSCLES: Mild edema in the vastus medialis and lateral gastrocnemius muscles. MENISCI: Increased signal seen in the body of the medial meniscus. This may represent a tear versus degeneration. The lateral meniscus is unremarkable. SOFT TISSUES: Artifact from vascular clips are seen in the medial soft tissues. LIGAMENTS: Anterior Cruciate: Unremarkable. Posterior Cruciate: Unremarkable. Medial Collateral:Unremarkable. Lateral Collateral: Unremarkable. OTHER: IMPRESSION: 1. Degeneration and/or tear the body of the medial meniscus. 2. No evidence of a ligament tear. 3. Mild edema seen in the vastus medialis and lateral gastrocnemius muscles. May represent muscle in jury. No evidence of a muscle tear is seen. DATA REPOSITORY:
== END 2020-04-17 00:57 ==
PROVIDERS: PCP Emergency Medicine; Visit Provider Orthopaedic Surgery
DX: M23.303 Other meniscus derangements, unspecified medial meniscus, right knee (principal); M25.561 Pain in right knee
CPT/HCPCS: 73721

== ENCOUNTER → 2020-04-25 09:55 | Outpatient (BNVA) | payer MEDICARE, SELFPAY | PROVIDERS: PCP Emergency Medicine; Referring Provider Emergency Medicine; Visit Provider Orthopaedic Surgery | DX: S83.241D Other tear of medial meniscus, current injury, right knee, subsequent encounter (principal); X58.XXXD Exposure to other specified factors, subsequent encounter; I10 Essential (primary) hypertension | CPT/HCPCS: 99213 ==

== ENCOUNTER → 2020-04-27 08:51 | Outpatient (BNVA) | payer MEDICARE, SELFPAY | PROVIDERS: PCP Emergency Medicine; Referring Provider Emergency Medicine; Visit Provider Surgery | DX: K40.90 Unilateral inguinal hernia, without obstruction or gangrene, not specified as recurrent (principal); I10 Essential (primary) hypertension | CPT/HCPCS: 99202; 99213 ==

== ENCOUNTER 2020-05-11 08:04 | Outpatient (CLI) | payer MEDICARE, SELFPAY ==
[2020-05-13 13:21] LABS: SARS-CoV-2 RNA Not Detected (NotDetected)
[2020-05-13 13:22] LABS: SARS-CoV-2 RNA Source Nasal/Nares
== END 2020-05-11 08:24 ==
PROVIDERS: PCP Emergency Medicine; Visit Provider Orthopaedic Surgery
DX: Z11.59 Encounter for screening for other viral diseases (principal); Z01.818 Encounter for other preprocedural examination
CPT/HCPCS: U0003

== ENCOUNTER 2020-05-15 08:15 | Day surgery (SDC) | payer MEDICARE, SELFPAY ==
[2020-05-15 08:58] VITALS: BP 135/72; PULSE 66; RESP 18; TEMP 36.5; O2SAT 97
[2020-05-15] MEDS: Lactated Ringers 1,000 ML 80 ML IV (09:10)
--- NOTE | 2020-05-15 12:54 | NUR.NOTE ---
1110: Pt. cancelled today due to situation developing in OR. Dr. Lloyd in to speak to patient. Nursing Note:
== END 2020-05-15 08:35 ==
PROVIDERS: PCP Emergency Medicine; Visit Provider Orthopaedic Surgery
DX: M16.11 Unilateral primary osteoarthritis, right hip (principal); Z53.9 Procedure and treatment not carried out, unspecified reason
CPT/HCPCS: J1100; J2405; J2704

== ENCOUNTER 2020-05-25 03:14 | Outpatient (CLI) | payer MEDICARE, SELFPAY ==
[2020-05-26 21:56] LABS: SARS-CoV-2 RNA Not Detected (NotDetected); SARS-CoV-2 RNA Source Nasal/Nares
== END 2020-05-25 03:34 ==
PROVIDERS: PCP Emergency Medicine; Visit Provider Orthopaedic Surgery
DX: Z01.818 Encounter for other preprocedural examination (principal); Z11.59 Encounter for screening for other viral diseases; S83.241A Other tear of medial meniscus, current injury, right knee, initial encounter
CPT/HCPCS: U0003

== ENCOUNTER 2020-05-29 06:56 | Day surgery (SDC) | payer MEDICARE, SELFPAY ==
[2020-05-29] VITALS (7 sets, daily range): BP systolic 92–138; BP diastolic 41–68; PULSE 53–61; RESP 16–18; TEMP 36.2–36.7; O2SAT 96–99
[2020-05-29] MEDS: Lactated Ringers 1,000 ML 80 ML IV (07:37)
[2020-05-29] MEDS: ceFAZolin 2 GM/50 ML BAG IVPB (09:17)
[2020-05-29] MEDS: methylPREDNISolone ACETATE 80 MG/ML VIAL (09:22)
--- NOTE | 2020-05-29 09:30 | DI.RAD_ITS ---
EXAM: XR HIP RT IN OR CLINICAL HISTORY: OSTEOARTHRITIS RIGHT HIP. TECHNIQUE: 2D and realtime digital imaging was performed. COMPARISON: No exams were available for comparison FINDINGS: Fluoroscopy was provided for Dr. Ramos for guidance with performing a hip injection. Please see procedure note for details. Fluoro time: 3.8 sec, 0.56 mGy RADIATION DOSE DELIVERED:
[2020-05-29] MEDS: Bupivacaine 0.5% Pres-Free 30 ML VIAL (09:47)
[2020-05-29] MEDS: EPINEPHrine 1 MG/ML AMP pres-free (09:47)
--- NOTE | 2020-05-29 10:04 | PDOC.DSDIS_ITS ---
Discharge Plan Disposition Patient Disposition: HOME Condition: Good Discharge Details Reason For Visit: Internal derangement R knee, OA R hip Attending Provider: Yandel Ramos Primary Care Provider: Oliver Gandhi Home Meds and New Rx's Prescriptions: New ibuprofen 800 mg tablet 800 mg PO TID Qty: 30 RF: 0 hydrocodone-acetaminophen 5-325 mg tablet 1 tab PO Q6H PRN (Reason: pain) Qty: 10 RF: 0 Continued magnesium 250 mg tablet 250 mg PO .QOD RF: 0 aspirin 81 MG tablet,delayed release (DR/EC) 81 mg PO DAILY RF: 0 metoprolol succinate 50 mg tablet extended release 24 hr 50 mg PO DAILY Qty: 90 RF: 4 atorvastatin 40 mg tablet 40 mg PO QHS Qty: 90 RF: 3 omeprazole 20 mg capsule,delayed release(DR/EC) 20 mg PO DAILY Qty: 90 RF: 4 doxazosin [Cardura] 4 mg tablet 4 mg PO HS Qty: 90 RF: 4 amlodipine 5 mg tablet 5 mg PO HS RF: 0 metoprolol succinate [Toprol XL] 25 mg tablet extended release 24 hr 25 mg PO HS RF: 0 acetaminophen 500 mg Capsule 1,000 mg PO Q6H PRNRF: 0 Discontinued ibuprofen 200 mg Tablet 400 mg PO Q6H PRNRF: 0 Discharge Instructions Additional Instructions: Crutches to walk. May put as much weight on R side as your discomfort allows. Discontinue crutches when you can step on R leg with no or mid pain. Elevate R leg on 1-2 pillows as much as possible for next 48 hours. Keep cryocuff continuously today and overnite. Tomorrow, start to use 4 times/day for 1 hour each time. May remove dressings, shower and get incisions wet after 48 hours. Leave incisions uncovered when they are dry and sealed. Walk every day as much as your pain allows. Outpatient physical therapy at [facility] on Friday for rehab R knee post- arthroscopic plica resection. Follow up with in 2 weeks. Take ibuprofen as prescribed for 10 days to decrease inflammation and swelling. Take hydrocodone for breakthru pain, if needed. Referrals: Yandel Ramos MD [ [facility]AFF PHYSICIAN] - (f/u in 2 weeks.) Equipment/Supplies: Partial Weight Bearing Crutches Activity:: Activity as Tolerated Remove Dressings/Wound Care:: 48 hours Shower/Bathe:: 48 hours Diet:: As Tolerated Discharge Orders Discharge Orders: Discharge Order (Routine); Ordered 05/29/20 Ordered By: Yandel Ramos
--- NOTE | 2020-05-29 10:38 | ROE_ITS ---
Date of service: 05/29/20 Time of Service: 09:17 Operative Note Operative Note DATE OF PROCEDURE: 05/29/20 PRE-OP DIAGNOSIS: Internal derangement right knee, osteoarthritis right hip POST-OP DIAGNOSIS: same PROCEDURE: Arthroscopy right knee with limited synovectomy (resection of plica), C arm guided intra-articular steroid injection right hip SURGEON: Yandel Ramos ANESTHESIA: GETA PATHOLOGY: none sent COMPLICATIONS: None Patient was transported to: PACU Indications: Is a 74-year-old white male who complains of right knee pain beginning back in October. He denies any particular trauma. It got worse the entire golfing season. In addition to discomfort around the supracondylar region of the right femur, he was experiencing some discomfort in his proximal medial thigh as well. Symptoms in the right knee were on the medial side. Plain x-rays did not show any significant arthritis. MRI scan showed an abnormal signal in the posterior horn the medial meniscus. It was uncertain whether this was simple degeneration or tear of the meniscus. Plan x-rays showed some moderate DJD of the right hip. Because of the prolonged length of time of symptoms of many months gradually getting worse, I recommend arthroscopic examination of the right knee for further evaluation. Patient also wished to have me try a C arm guided right hip injection to eliminate the hip as a source of discomfort as well. Risk complications of both procedures were discussed with the patient in detail preoperatively. Procedure Description: Patient was taken the operating room on 2020-05-26 placed supine operative table and general anesthetic was administered with LMA. Uterine forceps were used to assist in C arm localization of the hip joint. The skin with uterine forceps were lying over the femoral head was then marked with a pen. Through the skin until it contacted the femoral head. Was in the hip joint. I then injected through the spinal needle 15 cc of 4.5% Marcaine with epinephrin e solution along with 80 mg of Depo-Medrol. I remove the spinal needle and cycled the hip through flexion extension 50 times. Patient's right leg was then placed in arthroscopic leg morales and the right knee was prepped and draped free in usual sterile fashion. Arthroscopic portals were established in the right knee was inflated with normal saline solution using the arthroscopy pump. Routine arthroscopic lamination proceeded. Intraoperative photographs were obtained to document findings. Upon entering the medial compartment I was surprised to note that the medial meniscus looked normal. The articular surfaces of the medial compartment were well-preserved without any particular injury. Through an anteromedial portal I introduced a right angle probe into the medial compartment. The medial meniscus was thoroughly probed under direct vision. The meniscus was fully stable and I could not detect any tears of the meniscus. Intercondylar notch showed intact anterior and posterior cruciate ligament. Lateral compartment showed normal lateral meniscus that was completely stable to probing under direct vision with a right angle probe. Articular surfaces in the lateral compartment were well-preserved. Suprapatellar pouch and lateral gutter were clear.. The articular cartilage undersurface the patella was well-preserved area of grade II chondromalacia in the very depth of the trochlea of the femur. I did not feel he required any treatment. I was then surprised to see a well-developed medial patella plica. The plica was resected using the high radiofrequency electrocautery wand and the volume of the medial gutter was restored. The knee was then irrigated with saline solution using the arthroscopy pump until the outflow was clear. All instruments were removed the knee. The arthroscopy portals were infiltrated with point 5% Marcaine with epinephrine solution and approximated with interrupted 4 nylon sutures. Using a 18-gauge needle I injected the right knee with 15 cc of 0.5% Marcaine with epinephrine solution along with 4 mg of morphine to help with postoperative analgesia. Wounds were dressed with Xeroform gauze sterile gauze 4 x 4's ABD pads and wrapped with 6 inch Marko bandages for light pressure dressing. Patient's anesthesia was reversed without complications.. Blood loss was minimal. The patient was discharged to recovery room in good condition. Patient was discharged home from day surgery unit when fully recovered from his general anesthesia. He is given instructions to use crutches to walk weightbearing as tolerated to the right leg. He was encouraged to walk as much as he can every day. He will let pain be his guide as to how much he can walk. He is to elevate his right leg on 2 pillows much as possible for the next 48 hours. He is to apply the Cryo/Cuff continuously overnight in today to the right knee. Tomorrow he will begin using the Cryo/Cuff 4 times a day for an hour each time. He may remove his dressing shower and get incisions wet after 48 hours. He can leave the incisions uncovered when they are dry and sealed. He will begin outpatient physical therapy for rehab of his right knee on Friday. He will follow-up with Dr. Ramos in 2 weeks. He will take ibuprofen 8 oh milligrams p.o. 3 times daily for 10 days as prescribed to decrease inflammation and swelling. He is given a prescription of hydrocodone with APAP 5/325 1 tablet every 6 hours as needed for breakthrough pain.
== END 2020-05-29 12:27 | disposition home or self-care (01) ==
PROVIDERS: PCP Emergency Medicine; Visit Provider Orthopaedic Surgery
PROC: (CPT 29870; principal; 2020-05-29 08:45)
PROC: (CPT 29875; 2020-05-29 08:45)
DX: M67.51 Plica syndrome, right knee (principal); M16.11 Unilateral primary osteoarthritis, right hip
CPT/HCPCS: 29875; 20610; 73501; J0171; J0690; J1040; J1100; J1885; J2405; J3010

== ENCOUNTER → 2020-06-13 09:11 | Outpatient (BNVA) | payer MEDICARE, SELFPAY | PROVIDERS: PCP Emergency Medicine; Referring Provider Emergency Medicine; Visit Provider Orthopaedic Surgery | DX: M16.11 Unilateral primary osteoarthritis, right hip (principal); Z47.89 Encounter for other orthopedic aftercare; M67.51 Plica syndrome, right knee ==

== ENCOUNTER 2020-11-24 12:13 | Outpatient (REF) | payer MEDICARE, SELFPAY ==
[2020-11-24 18:44] LABS: Calculated LDL 97 mg/dL (<100); Cholesterol 156 mg/dL (<200); HDL Cholesterol 46 mg/dL (40-60); Triglyceride 66 mg/dL (<150)
[2020-11-24 18:49] LABS: Abs Immature Grans 0.02 10^3/uL (0.0-0.06); Absolute Eosinophil Count 0.27 10^3/uL (0.0-0.7); Absolute Lymphocyte Count 1.45 10^3/uL (1.2-3.4); Absolute Monocyte Count 0.48 10^3/uL (0.1-0.8); Absolute Neutrophil Count 4.03 10^3/uL (1.2-6.7); Basophils % 1.6; Eosinophils % 4.3; HCT 40.6 % (40.0-50.0); HGB 13.1 g/dL (13.5-17.5); Immature Grans % 0.3; Lymphocytes % 22.8; MCH 27.4 pg (27.0-33.0); MCHC 32.3 % (32.0-36.0); MCV 84.9 fL (80-95); MPV 10.7 fL (8.0-11.0); Monocytes % 7.6; Neutrophils % 63.4; Nucleated RBC 0 %; Platelet Count 252 10^3/uL (130-400); RBC 4.78 10^6/uL (4.36-5.78); RDW 12.9 % (11.8-14.1); RDW-SD 39.8 fL; WBC 6.35 10^3/uL (4.4-10.8)
[2020-11-24 19:08] LABS: Creatine Kinase 125 U/L (39-308)
== END 2020-11-24 12:14 | disposition home or self-care (01) ==
LOC: NCHCN 12:13
PROVIDERS: PCP Emergency Medicine; Visit Provider Emergency Medicine
DX: M79.18 Myalgia, other site (principal); I10 Essential (primary) hypertension
CPT/HCPCS: 80061; 82550; 85027; 85025; 86140

== ENCOUNTER 2021-06-28 02:32 | Outpatient (CLI) | payer MEDICARE, SELFPAY ==
--- NOTE | 2021-06-28 09:21 | DI.RAD_ITS ---
Exam(s) XR KNEE RT 3V AP,LAT,LARA EXAM: XR KNEE RT 3V AP,LAT,LARA CLINICAL HISTORY: rt knee pain, m25.561. TECHNIQUE: 2D digital imaging was performed. COMPARISON: CR XR KNEE RT 2V AP,LAT from 04/05/2020 MR MR LOWER JOINT RT WO from 04/17/2020 FINDINGS: BONES: No acute fracture is present. No bony destructive lesion is seen. Enthesophyte upper pole pat lj. Mild periarticular spurring. JOINTS: The knee is normally aligned. No joint effusion is seen. Mild narrowing medial femoral tibi al joint space. SOFT TISSUE: Surgical clips in the medial soft tissues. Vascular calcifications. IMPRESSION: Mild degenerative changes. DATA REPOSITORY: RADIATION DOSE DELIVERED:
--- NOTE | 2021-06-28 09:21 | DI.RAD_ITS ---
Exam(s) XR HIP PELVIS ADULT BL EXAM: XR HIP PELVIS ADULT BL CLINICAL HISTORY: bilat hip pain,M25.552, M25.551. TECHNIQUE: 2D digital imaging was performed. COMPARISON: No exams were available for comparison FINDINGS: BONES: No acute fracture is present. No bony destructive lesion is seen. JOINTS: No dislocation present. Moderate narrowing of right hip joint greater superiorly. Periarticu lar spurring, sclerosis and subchondral cyst formation. Mild minimal spurring at the right femoral n coy margin. Left hip joint space well maintained. minimal acetabular spurring. SOFT TISSUE: Vascular calcifications. IMPRESSION: Moderate to severe degenerative changes of the right hip. Mild degenerative changes of left hip. DATA REPOSITORY: RADIATION DOSE DELIVERED:
== END 2021-06-28 02:52 ==
PROVIDERS: PCP Emergency Medicine; Visit Provider Emergency Medicine
DX: M25.561 Pain in right knee (principal); M17.11 Unilateral primary osteoarthritis, right knee; M25.551 Pain in right hip; M25.552 Pain in left hip; M16.0 Bilateral primary osteoarthritis of hip
CPT/HCPCS: 73521; 73562

== ENCOUNTER 2021-06-28 03:40 | Outpatient (CLI) | payer MEDICARE, SELFPAY ==
[2021-06-28 12:50] LABS: Hemoglobin A1C 5.5 % (<5.7)
[2021-06-28 13:17] LABS: Anion Gap 9.9 mmol/L (3-11); BUN 11 mg/dL (7-18); CO2 29.1 mmol/L (21.0-32.0); CREATININE 0.9 mg/dL (0.70-1.30); Calcium 8.5 mg/dL (8.5-10.1); Calculated LDL 89 mg/dL (<100); Chloride 104 mmol/L (98-107); Cholesterol 155 mg/dL (<200); Glucose 84 mg/dL (74-106); HDL Cholesterol 52 mg/dL (40-60); Potassium 3.8 mmol/L (3.5-5.1); Sodium 143 mmol/L (136-145); Triglyceride 70 mg/dL (<150)
== END 2021-06-28 03:41 | disposition home or self-care (01) ==
LOC: LBO 03:40
PROVIDERS: PCP Emergency Medicine; Visit Provider Emergency Medicine
DX: I10 Essential (primary) hypertension (principal); E11.9 Type 2 diabetes mellitus without complications
CPT/HCPCS: 36415; 73521; 73562; 80048; 80061; 83036

== ENCOUNTER → 2021-08-17 10:36 | Outpatient (BNVA) | payer MEDICARE, SELFPAY | PROVIDERS: PCP Family Medicine; Referring Provider Emergency Medicine; Visit Provider Student in an Organized Health Care Education/Training Program | DX: M16.11 Unilateral primary osteoarthritis, right hip (principal) | CPT/HCPCS: 99213 ==

== ENCOUNTER 2022-07-19 01:33 | Outpatient (CLI) | payer MEDICARE, SELFPAY ==
[2022-07-19 09:28] LABS: ALT 19 U/L (16-63); AST 20 U/L (15-37); Albumin 3.8 g/dL (3.4-5.0); Alkaline Phosphatase 142 U/L (46-116); Anion Gap 5.9 mmol/L (3-11); BUN 13 mg/dL (7-18); Bilirubin, Total 0.6 mg/dL (0.2-1.0); CO2 31.1 mmol/L (21.0-32.0); Calcium 8.6 mg/dL (8.5-10.1); Calculated LDL 104 mg/dL (<100); Chloride 104 mmol/L (98-107); Cholesterol 173 mg/dL (<200); Estimated GFR 78.98 (mL/min/1.73m2); Glucose 103 mg/dL (74-106); HDL Cholesterol 49 mg/dL (40-60); Potassium 3.7 mmol/L (3.5-5.1); Sodium 141 mmol/L (136-145); Total Protein 7.4 g/dL (6.4-8.2); Triglyceride 102 mg/dL (<150)
[2022-07-19 20:23] LABS: PSA, Screening 2.5 ng/mL (<=6.5)
== END 2022-07-19 01:34 | disposition home or self-care (01) ==
PROVIDERS: PCP Nurse Practitioner Family; Visit Provider Nurse Practitioner Family
DX: I25.10 Atherosclerotic heart disease of native coronary artery without angina pectoris (principal); N40.1 Benign prostatic hyperplasia with lower urinary tract symptoms; Z12.5 Encounter for screening for malignant neoplasm of prostate
CPT/HCPCS: 36415; 80053; 80061; 84153

== ENCOUNTER 2022-11-28 10:42 | Outpatient (CLI) | payer MEDICARE, SELFPAY ==
[2022-11-28 12:26] LABS: Abs Immature Grans 0.01 10^3/uL (0.0-0.06); Absolute Eosinophil Count 0.35 10^3/uL (0.0-0.7); Absolute Lymphocyte Count 1.84 10^3/uL (1.2-3.4); Absolute Monocyte Count 0.52 10^3/uL (0.1-0.8); Absolute Neutrophil Count 3.58 10^3/uL (1.2-6.7); Basophils % 1.6; Eosinophils % 5.5; HCT 41.9 % (40.0-50.0); HGB 13.7 g/dL (13.5-17.5); Immature Grans % 0.2; Lymphocytes % 28.8; MCH 28.8 pg (27.0-33.0); MCHC 32.7 % (32.0-36.0); MCV 88 fL (80-95); MPV 10.1 fL (8.0-11.0); Monocytes % 8.1; Neutrophils % 55.8; Platelet Count 223 10^3/uL (130-400); RBC 4.76 10^6/uL (4.36-5.78); RDW 12.4 % (11.8-14.1); RDW-SD 40.4 fL
[2022-11-28 12:46] LABS: Anion Gap 6.3 mmol/L (3-11); BUN 11 mg/dL (7-18); CO2 32.7 mmol/L (21.0-32.0); CREATININE 0.9 mg/dL (0.70-1.30); Calcium 8.6 mg/dL (8.5-10.1); Chloride 104 mmol/L (98-107); Estimated GFR 89.07 (mL/min/1.73m2); Glucose 90 mg/dL (74-106); Potassium 3.5 mmol/L (3.5-5.1); Sodium 143 mmol/L (136-145); TSH (W/Ref FT4) 1.15 uIU/mL (0.36-3.74)
== END 2022-11-28 10:43 | disposition home or self-care (01) ==
LOC: LOS 10:43
PROVIDERS: PCP Nurse Practitioner Family; Visit Provider Nurse Practitioner Family
DX: I10 Essential (primary) hypertension (principal); I25.10 Atherosclerotic heart disease of native coronary artery without angina pectoris; D64.9 Anemia, unspecified
CPT/HCPCS: 36415; 80048; 84443; 85025

== ENCOUNTER → 2023-11-24 08:59 | Outpatient (BNVA) | payer MEDICARE, SELFPAY | PROVIDERS: PCP Nurse Practitioner Family; Referring Provider Nurse Practitioner Family; Visit Provider Student in an Organized Health Care Education/Training Program | DX: M16.11 Unilateral primary osteoarthritis, right hip (principal) | CPT/HCPCS: 99213 ==

== ENCOUNTER 2023-12-31 12:58 | Outpatient (CLI) | payer MEDICARE, SELFPAY ==
--- NOTE | 2023-12-31 12:45 | RT.EKG_ITS ---
APPROVED REPORT Exam: Resting ECG Reason for Exam: palpatations Patient Location: O HR:73 bpm ECG Measurements Heart Rate 73 AXIS OK 149 P 60 QRSd 96 QRS 30 QT 420 T 26 QTc 463 Conclusion Sinus rhythm...normal P axis, V-rate 50- 99 Ventricular premature complex...V complex w/ short R-R interval Minimal ST depression, anterolateral leads...ST <-0.04mV, I aVL V2-V6
== END 2023-12-31 12:59 | disposition home or self-care (01) ==
LOC: DI.CM 13:00
PROVIDERS: PCP Nurse Practitioner Family; Visit Provider Nurse Practitioner Family
DX: R00.2 Palpitations (principal)
CPT/HCPCS: 93010

== ENCOUNTER 2024-01-01 02:02 | Outpatient (CLI) | payer MEDICARE, SELFPAY ==
[2024-01-01 15:35] LABS: HCT 39.6 % (40.0-50.0); HGB 13.5 g/dL (13.5-17.5); MCH 29.9 pg (27.0-33.0); MCHC 34.1 % (32.0-36.0); MCV 88 fL (80-95); MPV 9.6 fL (8.0-11.0); Platelet Count 208 10^3/uL (130-400); RBC 4.52 10^6/uL (4.36-5.78); RDW 12.5 % (11.8-14.1); RDW-SD 40.3 fL; WBC 7.55 10^3/uL (4.4-10.8)
[2024-01-01 16:45] LABS: ALT 22 U/L (16-63); AST 20 U/L (15-37); Albumin 3.5 g/dL (3.4-5.0); Alkaline Phosphatase 92 U/L (46-116); Anion Gap 8.3 mmol/L (3-11); BUN 14 mg/dL (7-18); Bilirubin, Total 0.62 mg/dL (0.2-1.0); CO2 31.7 mmol/L (21.0-32.0); Calcium 8.3 mg/dL (8.5-10.1); Chloride 105 mmol/L (98-107); Glucose 142 mg/dL (74-106); Magnesium 1.2 mg/dL (1.8-2.4); Sodium 145 mmol/L (136-145); TSH (W/Ref FT4) 1.17 uIU/mL (0.36-3.74); Total Protein 6.1 g/dL (6.4-8.2)
== END 2024-01-01 02:03 | disposition home or self-care (01) ==
LOC: LBO 02:03
PROVIDERS: PCP Nurse Practitioner Family; Visit Provider Nurse Practitioner Family
DX: R00.2 Palpitations (principal)
CPT/HCPCS: 36415; 80053; 85027; 93246; 83735; 84443

== ENCOUNTER 2024-01-01 14:28 | Outpatient (CLI) | payer MEDICARE, SELFPAY | END 2024-01-01 14:29 | disposition home or self-care (01) | PROVIDERS: PCP Nurse Practitioner Family; Visit Provider Nurse Practitioner Family | DX: R00.2 Palpitations (principal) | CPT/HCPCS: 93246 ==

== ENCOUNTER 2024-01-19 03:40 | Outpatient (CLI) | payer MEDICARE, SELFPAY ==
[2024-01-19 11:35] LABS: Anion Gap 8.8 mmol/L (3-11); BUN 25 mg/dL (7-18); CO2 28.2 mmol/L (21.0-32.0); CREATININE 1.1 mg/dL (0.70-1.30); Chloride 101 mmol/L (98-107); Estimated GFR 69.57 (mL/min/1.73m2); Glucose 109 mg/dL (74-106); Magnesium 1.6 mg/dL (1.8-2.4); Potassium 4.8 mmol/L (3.5-5.1); Sodium 138 mmol/L (136-145)
[2024-01-19 11:47] LABS: Hemoglobin A1C 5.6 % (<5.7)
[2024-01-20 10:03] LABS: HIV-1/2 Ag & Ab Screen Negative (Negative)
[2024-01-20 10:16] LABS: Hepatitis C Ab w Rflx HCV PCR Negative (Negative)
[2024-01-20 10:26] LABS: HBs Antibody, Quant <3.1 mIU/mL (See Note); Hep B Surface Ab Negative (See Note); Hepatitis B Core Antibody Negative (Negative); Hepatitis B Surface Antigen Negative (Negative)
== END 2024-01-19 03:41 | disposition home or self-care (01) ==
LOC: LBO 03:40
PROVIDERS: PCP Nurse Practitioner Family; Visit Provider Nurse Practitioner Family
DX: Z11.59 Encounter for screening for other viral diseases (principal); R00.2 Palpitations; Z11.4 Encounter for screening for human immunodeficiency virus [HIV]
CPT/HCPCS: 36415; 80048; 86704; 86706; 86803; 87340; 87389; 83036; 83735

== ENCOUNTER 2024-01-22 06:56 | Outpatient (CLI) | payer MEDICARE, SELFPAY ==
--- NOTE | 2024-01-22 09:18 | W.CARDEVENT ---
Date of service: 01/22/24 Time of Service: 09:18 Cardiac Event Recorder Referring Provider:: Candy Michelle Indications:: Palpitations Cardiac Event Note: This is a cardiac event monitor. Patient was monitored for 13 days and 1 hour Rhythm throughout was sinus with an average heart rate of 60. Minimum was 45, maximum 113. There were rare ventricular ectopic beats There were very rare atrial premature beats There was no atrial fibrillation, no high-grade AV block, no pauses greater than 3 seconds There were rare brief self-limited atrial runs, all asymptomatic No patient symptoms whatsoever were reported
== END 2024-01-22 06:57 | disposition home or self-care (01) ==
LOC: CARDOPNVT 06:56
PROVIDERS: PCP Nurse Practitioner Family; Visit Provider Internal Medicine Cardiovascular Disease
DX: R00.2 Palpitations (principal); I49.1 Atrial premature depolarization
CPT/HCPCS: 93248

== ENCOUNTER 2024-02-23 04:08 | Outpatient (CLI) | payer MEDICARE, SELFPAY ==
[2024-02-23 09:11] LABS: Anion Gap 7.5 mmol/L (3-11); BUN 11 mg/dL (7-18); CO2 27.5 mmol/L (21.0-32.0); Chloride 102 mmol/L (98-107); Glucose 105 mg/dL (74-106); Magnesium 1.5 mg/dL (1.8-2.4); Potassium 4.3 mmol/L (3.5-5.1); Sodium 137 mmol/L (136-145)
== END 2024-02-23 04:09 | disposition home or self-care (01) ==
LOC: LBO 04:08
PROVIDERS: PCP Nurse Practitioner Family; Visit Provider Nurse Practitioner Family
DX: R00.2 Palpitations (principal)
CPT/HCPCS: 36415; 80048; 83735

== ENCOUNTER 2024-12-13 10:47 | Outpatient (CLI) | payer MEDICARE, SELFPAY ==
--- NOTE | 2024-12-13 10:00 | DI.RAD_ITS ---
Exam(s) XR PELVIS AP EXAM: XR PELVIS AP CLINICAL HISTORY: THR Planning. TECHNIQUE: 2D digital imaging was performed. COMPARISON: CR XR HIP PELVIS ADULT BL from 06/28/2021 FINDINGS: Single AP supine view. There are no fractures. Left hip remains unremarkable but there is again noted significant osteoarth ritic degenerative change in the right hip which is slightly further progressed when compared 2020. There is no mass [id number]-[id number] narrowing in superior aspect of the joint space. IMPRESSION: Advanced degenerative changes in the right hip with slight progression when compared to images of [facility] ember 2020. Left hip remains unremarkable in appearance. DATA REPOSITORY: RADIATION DOSE DELIVERED:
== END 2024-12-13 10:48 | disposition home or self-care (01) ==
LOC: DIORS 10:48
PROVIDERS: PCP Nurse Practitioner Family; Referring Provider Nurse Practitioner Family; Visit Provider Student in an Organized Health Care Education/Training Program
DX: M16.11 Unilateral primary osteoarthritis, right hip (principal)
CPT/HCPCS: 99214; 72170

== ENCOUNTER 2025-03-03 03:04 | Outpatient (CLI) | payer MEDICARE, SELFPAY ==
--- NOTE | 2025-03-03 05:45 | DI.US_ITS ---
APPROVED REPORT EXAM: Comprehensive 2D, Doppler, and color-flow Echocardiogram Patient Location: Out-Patient [employer] Associate: Kiersten Sarkar RDCS (AE) Indications: Reassess mitral regurgitation Other Information Study Quality: Adequate Conclusion Normal left ventricular wall thickness and chamber size. Ejection fraction biplane is 55%. Visually it appears 60 to 65% Normal right ventricular size and function Moderately enlarged left atrium. Normal right atrial size The aortic valve is calcified and trileaflet. There is no hemodynamically significant aortic stenosis. There is trace aortic regurgitation Normal mitral valve with mild regurgitation Mild tricuspid regurgitation. Estimated right ventricular systolic pressure is 31 mmHg Ascending aorta measures 4.0 cm Wall motion Left Ventricle The left ventricle is normal size. The left ventricular systolic function is normal. The left ventricular ejection fraction is within the normal range. There is normal left ventricular wall thickness. There is normal LV segmental wall motion. There is no ventricular septal defect visualized. LVEF is 55%. Right Ventricle The right ventricle is normal size. The right ventricular systolic function is normal. Atria Left atrium is moderately dilated. The right atrium size is normal. Aortic Valve The Aortic valve is sclerotic. Aortic valve is trileaflet. There is no aortic valvular stenosis. Trace aortic regurgitation. Mitral Valve The mitral valve is normal in structure. No evidence of mitral valve stenosis. Mild mitral regurgitation. Tricuspid Valve The tricuspid valve is normal in structure. There is no tricuspid valve stenosis. Mild tricuspid regurgitation. The RVSP is 31.2_ mmHg. Pulmonic Valve The pulmonary valve is normal in structure. There is no pulmonic valvular stenosis. Trace pulmonic regurgitation. Great Vessels The aortic root is normal in size. The ascending aorta is moderately dilated. Aortic arch is normal in caliber. IVC is normal in size and collapses >50% with inspiration. Pericardium There is no pericardial effusion. 2D Dimensions IVSD d PLAX 1.02 cm M: 0.6-1.2 Ao Root d 3.40 cm M: 3.1 - 3.7 LVPW d PLAX 1.00 cm M: 0.6 - 1.2 Ao Asc Diam d 4.00 cm M: 2.6 - 3.4 LVID d PLAX 5.00 cm M: 4.2 - 5.8 LVDs 3.53 cm M: 2.5 - 4.0 LV EF Teichholz 55.6 % FS 29.03 % LV EDV (Teich) 116.7 mL LV ESV (Teich) 51.9 mL M-Mode TAPSE 2.88 cm (M/F) >1.7 Auto EF LV EDV A4C 132.9 mL LV EDV A2C 155.3 mL LV EDV BP 146.2 mL LV ESV A4C 59.3 mL LV ESV A2C 69.1 mL LV ESV BP 65.8 mL LVEF(%) A4C 55.3 % LVEF(%) A2C 55.5 % LVEF(%) BP 55.0 % LV SV A4C 73.5 ml LV SV A2C 86.2 ml LV SV BP 80.3 ml LV CO A4C 4.6 L/min LV CO A2C 5.5 L/min LV CO BP 5.0 L/min HR A4C 62.61 BPM HR A2C 63.25 BPM LV EDV Index (BP) LA Volume LA Length A4C 6.6 cm LA Length A2C 6.4 cm LA Area A4C s 28.50 cm2 LA Area A2C s 30.49 cm2 LA Vol A4C A-L 105.20 mL LA Vol A2C A-L 123.55 mL LA Vol Biplane A-L 115.5 mL LA Vol/BSA A4C A-L LA Vol/BSA A2C A-L LA Vol/BSA BP A-L 59.8 mL/m2 LA Vol A4C MOD 99.1 mL LA Vol A2C MOD 118.3 mL LA Vol BP MOD 108.9 mL RA Volume RA Area A4C 15.8 cm2 RA ESV A4C (A-L) 42.2mL RA Vol/BSA A4C A-L RA Length A4C 5.0 cm RA ESV A4C (MOD) 39.3mL LV Diastology MV E' medial 0.077 (>0.07 m/s) MV E Vmax 0.93 (0.4-1.3 m/s) MV E/E' MED 12.16 (<14) MV A Vmax 0.55 (0.4-1.3 m/s) MV E' lateral 0.104 (>0.1 m/s) E/A Ratio 1.7 MV E/E' LAT 9.01 (<14) MV E' Average 0.090 m/s MV E/E'(average) 10.35 Aortic Valve AoV Vmax 1.59 m/s LVOT Vmax 1.10 m/s AoV Peak Grad 10.1 mmHg LVOT Peak Grad 4.8 mmHg AoV Area (Vmax) 1.98 cm2 LVOT VTI 0.275 m AoV VTI 0.418 m LVOT Mean Grad 2.5 mmHg AoV Mean Colby. 1.04 m/s LVOT SV 78.91 mL AoV Mean Grad 5.1 mmHg LVOT Diam s 1.90 cm AoV Area (VTI) 1.89 cm2 AV Regurg Peak Gr. 10.10 mmHg Velocity Ratio 0.69 Mitral Valve MV DT 164 (160-240 msec) MV Vmax TIPS 0.85 m/s MV Mean Grad 1.0 (<2mmHg) MV VTI 0.291 m Pulmonary Valve PV Vmax 1.17 (0.5-1.5 m/s) RVOT Vmax 0.75 m/s PV Peak Grad 5.5 mmHg RVOT Peak Gr. 2.2 mmHg PV Mean Colby 0.78 m/s RVOT VTI 0.219 m PV Mean Grad 2.8 mmHg RVOT Mean Gr. 1.4 mmHg Tricuspid Valve RA Pressure 3.00 mmHg TR Vmax 2.66 m/s TV S' 0.14 m/s TR Peak Grad 28.2 mmHg RVSP (TR) 31.2 mmHg
== END 2025-03-03 03:24 ==
LOC: DI 03:04
PROVIDERS: PCP Nurse Practitioner Family; Visit Provider Internal Medicine Cardiovascular Disease
DX: I08.2 Rheumatic disorders of both aortic and tricuspid valves (principal)
CPT/HCPCS: 93306

== ENCOUNTER 2025-03-04 13:23 | Outpatient (CLI) | payer MEDICARE, SELFPAY ==
--- NOTE | 2025-03-04 13:15 | RT.EKG_ITS ---
APPROVED REPORT Exam: Resting ECG Reason for Exam: PREOP EVALUTION Patient Location: O HR:63 bpm ECG Measurements Heart Rate 63 AXIS MS 156 P 52 QRSd 101 QRS 33 QT 425 T 47 QTc 436 Conclusion Sinus rhythm...normal P axis, V-rate 50- 99 Probable left ventricular hypertrophy...multiple LVH criteria
== END 2025-03-04 13:24 | disposition home or self-care (01) ==
LOC: DI.CM 13:24
PROVIDERS: PCP Nurse Practitioner Family; Visit Provider Nurse Practitioner Family
DX: R00.2 Palpitations (principal); I25.10 Atherosclerotic heart disease of native coronary artery without angina pectoris; I51.7 Cardiomegaly
CPT/HCPCS: 93010

== ENCOUNTER 2025-03-10 14:11 | Outpatient (REF) | payer MEDICARE, SELFPAY ==
[2025-03-10 12:36] LABS: Anion Gap 5.6 mmol/L (3-11); BUN 16 mg/dL (7-18); CO2 31.4 mmol/L (21.0-32.0); Calcium 8.9 mg/dL (8.5-10.1); Chloride 103 mmol/L (98-107); Estimated GFR 87.96 (mL/min/1.73m2); Glucose 109 mg/dL (74-106); Potassium 4.9 mmol/L (3.5-5.1); Sodium 140 mmol/L (136-145)
[2025-03-10 12:37] LABS: HCT 40.8 % (40.0-50.0); HGB 13.6 g/dL (13.5-17.5); MCH 29.9 pg (27.0-33.0); MCHC 33.3 % (32.0-36.0); MCV 90 fL (80-95); MPV 10.1 fL (8.0-11.0); Platelet Count 215 10^3/uL (130-400); RBC 4.55 10^6/uL (4.36-5.78); RDW 12.2 % (11.8-14.1); RDW-SD 40.3 fL; WBC 6.31 10^3/uL (4.4-10.8)
== END 2025-03-10 14:12 | disposition home or self-care (01) ==
LOC: LBN 14:11
PROVIDERS: PCP Nurse Practitioner Family; Visit Provider Student in an Organized Health Care Education/Training Program
DX: M16.11 Unilateral primary osteoarthritis, right hip (principal); Z01.818 Encounter for other preprocedural examination
CPT/HCPCS: 80048; 85027

== ENCOUNTER 2025-03-15 06:03 | Day surgery (SDC) | payer MEDICARE, SELFPAY ==
[2025-03-15] VITALS (18 sets, daily range): BP systolic 86–155; BP diastolic 37–68; PULSE 53–75; RESP 11–24; TEMP 36.1–36.7; O2SAT 93–98; BMI 29.0
[2025-03-15] MEDS: Celecoxib 200 MG CAP 400 MG PO (06:29)
[2025-03-15] MEDS: Acetaminophen 500 MG TAB 1000 MG PO (06:29)
[2025-03-15] MEDS: Lactated Ringers 1,000 ML 80 ML IV (06:50)
--- NOTE | 2025-03-15 07:03 | W.PM.DSUDISC ---
Date of service: 03/15/25 Discharge Plan Disposition Patient Disposition: Home Condition: Good Discharge Details Reason For Visit: Right hip DJD Attending Provider: Antonino Cohn Primary Care Provider: Candy Michelle Home Meds and New Rx's Prescriptions: New meloxicam 15 mg tablet 15 mg PO DAILY Qty: 30 1RF Rx Instructions: Take one tablet daily for pain and inflammation aspirin 81 mg tablet,delayed release (DR/EC) 81 mg PO BID 30 Days Qty: 60 0RF tramadol 50 mg tablet 50 mg PO Q6H PRN (Reason: severe postoperative pain) Qty: 12 0RF Rx Instructions: Take one tablet up to every 6 hours as needed for severe pain acetaminophen 500 mg tablet 1,000 mg PO Q8H PRN Qty: 90 0RF Rx Instructions: Take two tablets up to every 8 hours as needed for pain dexamethasone 4 mg tablet 4 mg PO DAILY Qty: 2 0RF Rx Instructions: Take one tablet once daily for two days docusate sodium [Colace] 100 mg capsule 100 mg PO BID Qty: 28 0RF Continued losartan 100 mg tablet 100 mg PO DAILY potassium chloride [K-Tab] 20 mEq tablet extended release 20 meq PO DAILY Qty: 90 3RF tamsulosin 0.4 mg capsule 0.8 mg PO QHS Qty: 180 3RF hydrochlorothiazide 25 mg tablet 25 mg PO DAILY Qty: 90 3RF magnesium oxide 250 mg magnesium tablet 500 mg PO BID pravastatin 40 mg tablet 40 mg PO DAILY Qty: 90 3RF omeprazole 20 mg capsule,delayed release(DR/EC) 20 mg PO DAILY Qty: 90 3RF metoprolol succinate 100 mg tablet extended release 24 hr 100 mg PO DAILY Qty: 90 3RF Discontinued aspirin 81 MG tablet,delayed release (DR/EC) 81 mg PO DAILY acetaminophen 500 mg Capsule 1,000 mg PO Q6H PRN Discharge Instructions Additional Instructions: Total Hip Discharge Instructions Activity: The most important activity is to walk. You should try to take short walks a few times a day. You have no restrictions on movement or positioning, but do not try to force what you do. You will find some stiffness and weakness with hip flexion (lifting your knee). Do not try to strengthen this too early, continue to practice walking and stairs and this will come. - Outpatient physical therapy can be helpful to help return you to a normal gait and improve your flexibility and strength. This can start around 2 weeks. For some patients, it?s not necessary. Usually this is determined at the time of discharge or at the first post-operative visit. - You should wear the CAESAR hose on both legs for 2 weeks. Dressing: Keep the surgical dressing in place for at least one week. After the first week it may be removed and replace with light gauze and tape or nothing. It may get wet after 3 days but avoid soaking the dressing. If it gets wet, just lightly pat dry. It is important to always keep some gauze between skin folds, especially when you are sitting. Spend some time with the wound exposed when you are lying flat as the incision does wrinkle onto itself. Medications: - You should take Tylenol and an anti-inflammatory Meloxicam as your primary pain control medications. If the Meloxicam is too expensive or not covered, please call the office for another alternative (Advil/Ibuprofen or Naproxen/Aleve). - You have been prescribed a stronger pain medication Tramadol for breakthrough pain, take as needed as prescribed. - You take a stomach acid reduction agent Omeprazole at baseline - continue with this medication to help reduce stomach acid and reflux. - You have also been prescribed Decadron to help with post-operative nausea and pain. You will take this for two days starting tomorrow. - You will be taking Aspirin 81mg twice a day for DVT prevention unless instructed otherwise. - If you have constipation you should take Colace (which has been prescribed) or Miralax (which is available [id number]). It takes most people 3-4 days to have a bowel movement. Follow-up: 2 weeks If you have any acute concerns or questions, please do not hesitate to contact the office at [phone]. You may contact Dr. Cohn with any questions after hours through the hospital at [phone] or on his cell phone at [phone]. Referrals: Antonino Cohn MD [ [facility] STAFF PHYSICIAN, Orthopaedic Surgical] Equipment/Supplies: Walker Activity:: Elevate Remove Dressings/Wound Care:: Do Not Remove Shower/Bathe:: Cover Diet:: As Tolerated Discharge Orders Discharge Orders: Discharge Order (Routine); Ordered 03/15/25 Ordered By: Angeles Yepez
--- NOTE | 2025-03-15 07:07 | W.ANESPRE ---
General Info Date of Service Date Performed: 03/15/25 Height: 5 ft 6.5 in Weight: 83 kg Body Mass Index (BMI): 29.0 Surgical Procedure: Operation Date: 03/15/25 07:50 Proposed Procedure Side Surgeon p Hip Total Hip Anterior Right Antonino Cohn MD Meds Allergies and Home Medications Allergies Allergy/AdvReac Type Severity Reaction Status Date / Time amlodipine AdvReac Mild Palpitation Verified 03/15/25 06:17 s oxycodone AdvReac Mild NAUSEA/VOMI Verified 03/15/25 06:17 TING Home Medication ?Medication ?Instructions ?Recorded magnesium oxide 500 mg PO BID 02/26/24 pravastatin 40 mg tablet 40 mg PO DAILY #90 tabs 07/05/24 metoprolol succinate 100 mg 100 mg PO DAILY #90 tabs 07/21/24 tablet,extended release 24 hr omeprazole 20 mg capsule,delayed 20 mg PO DAILY #90 caps 07/21/24 release hydrochlorothiazide 25 mg tablet 25 mg PO DAILY #90 tabs 08/18/24 potassium chloride 20 mEq 20 meq PO DAILY #90 tabs 02/14/25 tablet,extended release (K-Tab) tamsulosin 0.4 mg capsule 0.8 mg (2 x 0.4 mg) PO QHS #180 02/14/25 caps losartan 100 mg tablet 100 mg PO DAILY 03/04/25 acetaminophen 500 mg tablet 1,000 mg (2 x 500 mg) PO Q8H PRN 03/15/25 pain #90 tabs aspirin 81 mg tablet,delayed 81 mg PO BID 30 days #60 tabs 03/15/25 release dexamethasone 4 mg tablet 4 mg PO DAILY #2 tabs 03/15/25 docusate sodium 100 mg capsule 100 mg PO BID #28 caps 03/15/25 (Colace) meloxicam 15 mg tablet 15 mg PO DAILY #30 tabs 03/15/25 tramadol 50 mg tablet 50 mg PO Q6H PRN severe 03/15/25 postoperative pain #12 tabs Current Visit Medications: Current Medications Generic Name Dose Route Start Last Admin Trade Name Freq PRN Reason Stop Dose Admin Acetaminophen 1,000 mg 03/15/25 06:00 03/15/25 06:29 Acetaminophen 500 Mg Tab PO 03/15/25 23:59 1,000 mg PREOP CARMEN Administration Celecoxib 400 mg 03/15/25 06:00 03/15/25 06:29 Celecoxib 200 Mg Cap PO 03/15/25 23:59 400 mg PREOP CARMEN Administration Hydromorphone HCl 0.5 mg 03/15/25 07:01 Hydromorphone 2 Mg/Ml Syr IVP 04/14/25 07:00 Q2H PRN PRN Ringer's Solution 1,000 mls @ 80 mls/hr 03/15/25 06:00 03/15/25 06:50 IV 03/15/25 23:59 80 mls/hr INFUSION CARMEN Administration Cefazolin Sodium/Dextrose 2 gm in 50 mls @ 100 mls/hr 03/15/25 06:00 Ancef Duplex IVPB 03/15/25 23:59 PREOP CARMEN Tranexamic Acid/Sodium Chloride 1,000 mg in 100 mls @ 600 mls/hr 03/15/25 06:00 IVPB 03/15/25 23:59 PREOP CARMEN Cefazolin Sodium/Dextrose 1 gm in 50 mls @ 100 mls/hr 03/15/25 08:00 Ancef Duplex IVPB 03/16/25 00:29 Q8H CARMEN IV Miscellaneous Supplies 1 each 03/15/25 06:00 Iv Access IV 03/15/25 23:59 DIRECTED CARMEN Sodium Chloride 0 ml 03/15/25 06:00 Normal Saline Flush 10 Ml Syr IV 03/15/25 23:59 PRN PRN Sodium Chloride 0 ml 03/15/25 06:00 Normal Saline 10 Ml Vial IJ 03/15/25 23:59 DIRECTED PRN Sterile Water 0 ml 03/15/25 06:00 Water,Injection,Sterile 10 Ml Vial IJ 03/15/25 23:59 DIRECTED PRN Tramadol HCl 50 mg 03/15/25 07:01 Tramadol 50 Mg Tab PO 04/14/25 07:00 Q4H PRN PRN Pain Tranexamic Acid 1,300 mg 03/15/25 07:01 Tranexamic Acid 650 Mg Tab PO 04/14/25 07:00 ONCE PRN postoperative PFSH Active Problems Active Problems: Problem Status Onset Code CAD (coronary artery disease) Chronic I25.10 Palpitations Chronic R00.2 Essential hypertension Chronic I10 Mitral regurgitation Chronic I34.0 Ascending aortic aneurysm Acute I71.21 Hyperlipidemia Chronic E78.5 Gastroesophageal reflux disease Chronic K21.9 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 Benign localized prostatic hyperplasia with lower urinary tract symptoms (LUTS) Chronic N40.1 Osteoarthritis of right hip Chronic M16.11 Sigmoid diverticulosis Chronic K57.30 Medical History Medical History Tubular adenoma of colon 2016 colonoscopy Kidney stone Surgical History Surgical History S/P right knee arthroscopy (05/29/20) S/P colonoscopy S/P ORIF (open reduction internal fixation) fracture Right calcaneus S/P CABG x 3 (~07/2000) Status post tonsillectomy and adenoidectomy History of cataract surgery Tobacco Smoking/Tobacco Use Status: Former Tobacco Use Passive smoking exposure: Yes Second hand exposure: Yes Alcohol Alcohol Intake: current Alcohol intake frequency: a few times a month Alcohol type: hard liquor Substance Use Substance use: Never Substance use type: does not use Details: alcohol: t-3, one drink Vital Signs and Lab Results Vital Signs Most Recent Vital Signs in EMR: Most Recent Vital Signs Temp Pulse Resp BP Pulse Ox 36.7 C 68 20 155/67 H 97 03/15/25 06:25 03/15/25 06:25 03/15/25 06:25 03/15/25 06:25 03/15/25 06:25 Lab Results Complete Blood Count: WBC, (4.4-10.8) 6.31 10^3/uL 03/10/25, 12:26 RBC, (4.36-5.78) 4.55 10^6/uL 03/10/25, 12:26 Hgb, (13.5-17.5) 13.6 g/dL 03/10/25, 12:26 Hct, (40.0-50.0) 40.8 % 03/10/25, 12:26 Plt Count, (130-400) 215 10^3/uL 03/10/25, 12:26 Complete Metabolic Panel: Sodium, (136-145) 140 mmol/L 03/10/25, 11:15 Potassium, (3.5-5.1) 4.9 mmol/L 03/10/25, 11:15 Chloride, (98-107) 103 mmol/L 03/10/25, 11:15 Carbon Dioxide, (21.0-32.0) 31.4 mmol/L 03/10/25, 11:15 BUN, (7-18) 16 mg/dL 03/10/25, 11:15 Creatinine, (0.70-1.30) 0.9 mg/dL 03/10/25, 11:15 Est GFR (CKD-EPI 2020), (mL/min/1.73m2) 87.96 03/10/25, 11:15 Calcium, (8.5-10.1) 8.9 mg/dL 03/10/25, 11:15 Glucose, (74-106) 109 mg/dL H 03/10/25, 11:15 Imaging and Studies Imaging and Studies Study information below may be from another EMR and interpreted by another provider. Please see original notes in EMR for more complete details. EKG Summary: 02/2025:Conclusion Sinus rhythm...normal P axis, V-rate 50- 99 Probable left ventricular hypertrophy...multiple LVH criteria Stress Test Summary: 07/2017: Impressions: Normal study after maximal exercise. Summary: 1. Myocardial perfusion imaging: No myocardial perfusion defects noted. 2. The calculated left ventricular ejection fraction after stress: 57%. LV global systolic function is normal. No left ventricular regional motion abnormality. Echocardiogram Summary: 02/2025:Conclusion Normal left ventricular wall thickness and chamber size. Ejection fraction biplane is 55%. Visually it appears 60 to 65% Normal right ventricular size and function Moderately enlarged left atrium. Normal right atrial size The aortic valve is calcified and trileaflet. There is no hemodynamically significant aortic stenosis. There is trace aortic regurgitation Normal mitral valve with mild regurgitation Mild tricuspid regurgitation. Estimated right ventricular systolic pressure is 31 mmHg Ascending aorta measures 4.0 cm Anesthesia Assessment and Plan Anesthesia History Personal History: No History of Anesthesia Complications Family History: No Family History of Anesthesia Complications Exercise Tolerance Exercise Tolerance: Metabolic Equivalents>4 Pertinent Negatives Pertinent Negatives: No Symptoms of GERD Cardiac & Pulmonary Exam Cardiac Exam: Normal S1/S2 Heart Sounds Pulmonary Exam: Clear Bilateral Breath Sounds Implantable Cardiac Device Does patient have a Pacemaker or an ICD?: No Airway Exam Known Difficult Airway: No Mallampati Class: 2 Mouth Opening: Normal (> 3cm) Thyromental Distance: Greater than 3 cm Neck Range of Motion: Full ROM Neck Circumference: Normal Teeth Condition: Normal Dentition ASA Classification ASA Score: ASA 3 Emergency Case?: No NPO Status NPO Status: NPO Clears >2 hours, Solids >8 hours Anesthesia Plan Resuscitation Status: Full Code Anesthesia Technique: Spinal Anesthesia Airway Planned: Natural Airway Monitors Used: Standard Monitors
[2025-03-15] MEDS: ceFAZolin 2 GM/50 ML BAG IVPB (07:30)
--- NOTE | 2025-03-15 07:40 | W.PM.OP ---
Operative Note Operative Note PRE-OP DIAGNOSIS: Right Hip Osteoarthritis POST-OP DIAGNOSIS: same PROCEDURE: Right Anterior Total Hip Arthroplasty with Intraoperative Navigation SURGEON: Antonino Cohn INTERIOR DECORATOR PAINTING: Angeles Yepez ANESTHESIA TYPE: Spinal Refer to Anesthesia Record ESTIMATED BLOOD LOSS: 350 PATHOLOGY: none sent TOURNIQUET TIME: 0 COMPLICATIONS: None Patient was transported to: PACU Patient's condition: stable Implants: 1. Depuy Burton Acetabular Component, 56mm 2. Depuy Acetabular Liner, [id number] 3. Depuy Actis Standard Collared Femoral Stem, Size 5 4. Depuy Altrx Ceramic Femoral Head, Size 36+5mm Indications: I have seen Yannick in clinic for symptoms of hip arthritis, confirmed with radiographic findings. He has exhausted nonoperative methods and was having significant limitations in daily function and desired better function and less pain. I discussed the technical details of a hip replacement. I explained the risks of the procedure to include, but not limited to, bleeding, infection, pain, stiffness, fracture, damage to nerves and vessels, damage to muscles and tendons, loosening, instability, leg length inequality, need for repeat procedure, blood clot and cardiopulmonary demise. Despite these risks, Yannick elected to proceed. Findings: There was significant signs of arthritis throughout the hip. Procedure Description: Yannick was greeted in the preoperative holding area where the correct side was identified and marked. The consent was reviewed with the patient and signed. The history and physical was updated. All questions were answered. He was taken back to the operating room. A spinal anesthestic was then administered. The feet were wrapped with cast padding and Coban and then placed into the boot liners and then into the boots. Care was taken to protect the skin and make sure the heels were fully down and the boots were stable. The patient was then positioned onto the HANA table. Both legs were held in a neutral position. SCDs were applied. The patient was then slid down onto a peroneal post. Prophylactic antibiotics in the form of Cefazolin were administered. 1g of Tranxemic Acid was given intravenously within 30 minutes of incision. The right leg was then prepped with Chloraprep and draped in a standard fashion. A second prep with Chloraprep was performed prior to placement of a shower-curtain type drape with Iodine impregnated skin protection. A timeout to confirm correct identity, side and site, procedure, allergies, anesthesia, and medical concerns was performed. An obliquely oriented incision was made starting lateral to the ASIS and running distal over the Tensor Fascia Shayy (TFL) muscle belly toward the fibular head, approximately 10cm. The skin and soft tissue was dissected sharply, through Tre?s fascia, and to the fascia of the TFL. With the fascia and superior border of the IT band identified, the fascia was incised with a new knife just above any perforators from the IT band. The TFL muscle belly was bluntly dissected away from the fascia and moved laterally. The fat between TFL and rectus was identified to ensure the dissection was not within the TFL. Blunt dissection created space between abductors and the capsule and retractor was placed over the lateral femoral neck. The fibers of the rectus femoris tendon were identified and these were freed from the anterior capsule. A second cobra retractor was placed around the medial femoral neck. The TFL was further retracted laterally to show the deep fascia. Careful dissection through this layer identified three main crossing vessels of the lateral femoral circumflex. These were cauterized in multiple locations and then cut without any noticeable bleeding. The TFL was further released bluntly from the deep fascia to expose anterior hip capsule and fat The soft tissue orthopaedic retractor was then placed beneath the TFL and against sartorius and medial soft tissues to protect and retract the soft tissues. A T-capsulotomy was then performed starting at the superior lateral acetabulum and moving distally to the intertrochanteric ridge. These capsular flaps were tagged with a No. 1 Vicryl and elevated from within. The capsular flaps were released to the shoulder of the lateral neck and to the lesser trochanter to give excellent visualization of the proximal femur. A neck osteotomy was performed using an oscillating saw based on preoperative templates. This cut started in the shoulder and of the lateral neck and exited medially. The saw was at all times directed medially to avoid injury to the greater trochanter. Gross traction was applied to the leg and the osteotomy opened. The femoral head was removed with a corkscrew, making sure to protect the TFL on its exit. Traction was released after head removal. This was measured on the back table to determine the starting reamer size. Portions of the rectus obscuring visualization were minimally elevated off the superior acetabulum. An anterior retractor was placed over the anterior wall between capsule and labrum and attached to the Gripper retraction system. The femur was rotated to 90 degrees and medial capsule was fully released until the lesser trochanter was palpable and visible; the femur was returned to 30 degrees. A posterior retractor was placed similarly between capsule and labrum. This provided excellent visualization. The contents of the cotyloid fossa were removed with electrocautery and the labrum was removed with a knife. There was a notable floor osteophyte. There was significant chondromalacia of the superior acetabulum. Acetabular reaming began with a 51mm reamer. This first reaming was directed anterior to posterior and medial to get down to the true floor. This was inspected and reamed until the true floor was reached. The anterior retractor was then released and entry and exit was provided by traction on the capsular flaps. I then reamed sequentially up to a 56mm reamer where good fit was obtained. The larger reamers were oriented based on anatomical reference of the anterior and lateral rodriguez to ensure proper abduction and anteversion. Positioning and size was confirmed with the fluoroscopy. A 56mm Depuy Burton acetabular component was selected. The acetabulum was reamed around the periphery with the selected acetabular size to prevent a rim fit. The deep tissues were irrigated. The acetabular component was then impacted in a position of about 40-45 degrees of abduction and 15-20 degrees of anteversion, using the patient?s anatomy as the ultimate landmark. Fluoroscopy was used to confirm this. There was excellent job placement counselor of the acetabular component and the inserting handle was removed. The acetabular liner, Depuy [id number] polyethylene liner, was inserted and lined up with the tines of the acetabular component. There was no soft tissue interposition. The liner was then impacted into position and confirmed to be well-seated. A portion of the j carlos-articular cocktail was then injected around the acetabulum into the capsule and periosteum. This cocktail consisted of 123mg of Ropivacaine, 0.25mg of Epinephrine, 0.04mg of Clonidine, and 15mg of Ketorolac, diluted to 50cc. The leg was rotated to 120 degrees. Any remaining medial capsule was released until the lesser trochanter was easily palpable. A retractor was placed medially. The lateral capsule was further released into the shoulder to allow access to the greater trochanter. A Allison retractor was placed over the greater trochanter which allowed the trochanter to flip in front of the capsule for excellent exposure. The leg was brought down into maximal extension and 20 degrees of adduction while ensuring there was no impingement on the acetabulum. Any remnant capsule within the trochanter was released. Piriformis and obturator externis were identified and protected. There was excellent access to the proximal femur. The lateral neck remnant was removed with a rongeur. A blunt canal probe was used to identify the canal and trajectory for later broaching. A box osteotome initiated the broach course. A small curved rasp and a curved curette were used to work laterally. Broaching then began with a starter Actis broach. This was inserted manually around the trochanter and into the canal before mallet blows. The broach was seated to a few millimeters below the cut level based on the neck cut and the preoperative template. Sequential broaching was continued with the Sighter pneumatic broaching device until a tight fit was obtained with good rotational control of the femur. A trial standard neck was inserted along with a +5 trial head. The leg was brought out of extension and adduction and then reduced with traction and internal rotation. The leg was stable anteriorly in a position of 30 degrees of extension and 90 degrees of external rotation. Fluoroscopy was used to ensure there was no fracture and the stem was seated well. Leg lengths were checked with an AP pelvis and pelvic reference points. [employer] navigation system was used to confirm appropriate positioning and leg length and offset. Once content with the desired offset and leg lengths, the leg was brought back into extension, external rotation and adduction. The periosteum and surrounding tissue was injected with remaining portion of the j carlos-articular cocktail. The proximal femur was irrigated as well as the deep tissues. The DoYouRememberuy Actis standard collared stem, size 5, was then manually inserted into the proximal femur making sure to control rotation. It was then malleted into position with light blows, giving breaks to allow bone expansion and decrease risk of fracture. The selected Depuy Altrx Ceramic Head, size 36+5mm, was then placed onto the clean and dry trunnion and secured with impaction onto the tapered fit. The leg was brought back out of extension and adduction and reduced with traction and internal rotation. Stability was confirmed with no shuck at 90 degrees of external rotation and 30 degrees of extension. No impingement through range of motion arc. Final x-ray images were obtained with fluoroscopy to confirm adequate positioning and no intraoperative fracture. The deep tissues were thoroughly irrigated with Surgiphor, betadine solution. This was allowed to sit in the wound for 3 minutes before being thoroughly irrigated out with normal saline. The capsule was then reapproximated with the previously placed sutures and the indirect head of the rectus was inspected and reapproximated with a #1 Vicryl. The TFL fascia was finally closed with a No. 2 Stratafix, barbed suture. Deep tissues were then reapproximated with 0 Vicryl and a running 2-0 Vicryl. The skin was closed with a running 4-0 Monocryl in a subcuticular fashion. This was reinforced with skin glue. A Mepilex silver dressing was applied. At the end of the case, all counts were correct. Yannick was transferred to the hospital bed without difficulty and suffering no apparent complication. Yannick has a good prognosis. Physical therapy will start today and without restrictions, weight-bearing as tolerated. Aspirin 81mg BID will be used for DVT prophylaxis. Date of Procedure: 03/15/25
[2025-03-15] MEDS: TRANEXAMIC ACID/SOD. CHL. 1,000 MG/100 ML BAG 600 MG IVPB (07:46)
--- NOTE | 2025-03-15 08:50 | DI.RAD_ITS ---
Exam(s) XR HIP RT IN OR EXAM: XR HIP RT IN OR CLINICAL HISTORY: right hip djd. TECHNIQUE: 2D digital imaging was performed. COMPARISON: No exams were available for comparison FINDINGS: Fluoroscopy provided intraoperatively during right hip arthroplasty. See procedure report details. IMPRESSION: Radiation exposure index/cumulative dose:mickey Schaeffer=3.1813mGy DATA REPOSITORY: RADIATION DOSE DELIVERED:
--- NOTE | 2025-03-15 10:32 | PTTR_ITS ---
PT Notes Visit Reasons: Right hip DJD
--- NOTE | 2025-03-15 10:32 | IN_ITS ---
PT Notes Visit Reasons: Right hip DJD Physical Therapy Day Surgery Initial Evaluation Date: 03/15/2025 Referring Doctor: Angeles Yepez NP PT Orders: PT CONSULT: S/P Ortho Surgery Precautions: WBAT on the R LE with AD. Patient Profile/Admitting Diagnosis: Yannick is a 79-year-old male with degenerative joint disease of the right hip and is status post right total hip arthroplasty on postoperative day 0. PMHX: All Active Problems CAD (coronary artery disease) (Chronic) CABG x 3 in 2000Palpitations (Chronic) Essential hypertension (Chronic) Mitral regurgitation (Chronic) Mild on echo scending aortic aneurysm (Acute) 4cm on echo 2024Hyperlipidemia (Chronic) Gastroesophageal reflux disease (Chronic) Corneal endothelial dystrophy (Chronic) Benign localized prostatic hyperplasia with lower urinary tract symptoms (LUTS) (Chronic) Osteoarthritis of right hip (Chronic) Steroid injection with fluoroscopy: 05/29/2020Sigmoid diverticulosis (Chronic) Medical History Tubular adenoma of colon 2016 colonoscopy Kidney stone Surgical History S/P right knee arthroscopy (05/29/20) S/P colonoscopy S/P ORIF (open reduction internal fixation) fracture Right calcaneus S/P CABG x 3 (~07/2000) Status post tonsillectomy and adenoidectomy History of cataract surgery Social History/Home Situation: Lives with in a priavte home with 1 step to enter. Independent with all aspects of ADLs prior to surgery but was having an incrasing difficulty managin walking. Equipment Owned/DME: [facility] Subjective: I feel that the surgery was done but nothing too much, when asked about his pain. Denied headache , chest pain, and lightheadedness throughout session. Objective: General Observation: TEDS to B legs. Mepilex Ag over surgical incision. Mental Status: A and O x 4 Pain: 2-3/10 in the R hip that minimally limited today's functional performance ROM: Right Lower Extremity: Hip flexion WFL. Hip abduction WFL. Knee flexion WFL. Ankle dorsiflexion WFL. Ankle plantarflexion WFL. Left Lower Extremity: Hip flexion WFL. Hip abduction WFL. Knee flexion WFL. Ankle dorsiflexion WFL. Ankle plantarflexion WFL. Strength: Right Lower Extremity: Hip flexors 4-/5. Hip abductors 4-/5. Knee flexors 4/5. Knee extensors 4-/5. Ankle dorsiflexors 5/5. Ankle plantarflexors 5/5. Left Lower Extremity:Hip flexors 5/5. Hip abductors 5/5. Knee flexors 5/5. Knee extensors 5/5. Ankle dorsiflexors 5/5. Ankle plantarflexors 5/5. Sensation: intact as to pain and light pressure in B LE Bed Mobility/Transfers: Minimal cueing provided for use of B hands as needed for support, movement sequence, AD management, and posture to reduce fall risk and minimize pain report Supine to sit stand by assist Sit to stand contcat guard assist Stand to sit stand by assist Bed to chair stand by assist Gait: Facilitated safe and correct performance of level surface ambulation using the front-wheeled walker covering a distance of 150 feet with stand by assist and minimal verbal cueing for AD management., safe gait pattern, weight distribution, and posture. Stairs: Guided patient with safe and correct negotiation of 3 x 4-inch steps and 2 x 6- inch steps while holding onto B rails for support with stand by assistand minimal verbal cueing for limb movement sequence, hand placement, weight distribution, and posture. Toiletting: Patient was assisted into the bathroom and was able to provide needed help with instruction from PT. Balance: Static Sitting: Normal Dynamic Sitting: Normal Static Standing: Fair Dynamic Standing: Fair Special Tests: Mobility Limitations Standardized Measure [facility] 6 clicks Basic Mobility Inpatient Short Form: Raw Score: 23 CMS Score: 11% deficit Informed Consent/Education: Patient instructed in purpose of PT consult. Packet containing OLGA LIDIA exercise protocol has been given to patient. Education and training on initial set of exercises that can be done at home have been completed with patient. Trained patient with correct performance of exercises below to maximize motor control, joint flexibility, soft tissue extensibility of the R hip musculature to facilitate return to independent functional mobility performance. Access Code: [email or web address] URL: [email or web address] Date: 01/28/2023 Prepared by: Rachel Velez Exercises - Gluteal Sets - 1 x daily - 7 x weekly - 1 sets - 10 reps - 5 hold - Supine Heel Slide - 1 x daily - 7 x weekly - 1 sets - 10 reps - 5 hold - Supine Ankle Pumps - 1 x daily - 7 x weekly - 1 sets - 10 reps - 5 hold - Seated March - 1 x daily - 7 x weekly - 1 sets - 10 reps - 5 hold - Seated Long Arc Quad - 1 x daily - 7 x weekly - 1 sets - 10 reps - 5 hold Assessment: Patient required the use of FWW for all mobility ADL performance ot maximize indepdence and reduce fall risk. Patient presented with clinical signs and symptoms consistent with current/admitting diagnoses that have resulted to mobility limitations, gait instability, generalized weakness, and impairment of motor control as demonstrated by the following impairment level findings: 1. Decreased strength to R hip major muscle groups 2. Impaired standing balance 3. Limitation of joint range of motion in R hip Impairments are contributing to the following functional limitations: 1. Inability to safely ambulate without assistive device 2. Increase completion time for mobility ADL performance 3. Increased fall risk Patient is assessed as a 33045 moderate complexity based on the following: History: 79-year-old male with impairment level findings, functional limitations, and past medical history as indicated above Examination: Demonstrable impairment in strength, balance, and mobility level with underlying impairments and functional limitations as documented above Presentation: Evolving Decision Makin moderate complexity Goals: N/A. PT evaluation and 1-2 treatment sessions only for functional mobility training using recommended AD and for HEP instruction. Plan of Care/Treatment Plan: N/A. PT evaluation and 1-2 treatment session only for functional mobility training using recommended AD and for HEP instruction. DISCHARGE RECOMMENDATIONS: Home when medically cleared by orthopedic surgeon. Recommend outpatient PT services in order to optimize functional mobility outcomes and facilitate return to independent community ambulation without an assistive device. TREATMENT CODE/TIME: 43504 x 20 minutes for 1 unit, 32130 x 16 inutes for 1 unit (10:32-11:08). Thank you for the opportunity to participate in the care of this patient. Rachel Velez PT, DPT, CLT [facility] [place], [place]
--- NOTE | 2025-03-15 10:32 | PT.INTREAT ---
PT Notes Visit Reasons: Right hip DJD
--- NOTE | 2025-03-15 10:59 | W.ANESPOSTOP ---
Postoperative Evaluation Date, Time and Location Date Performed: 03/15/25 Time Performed: 10:01 Patient Location: Day Surgery Unit Vital Signs Most Recent Imported Vital Signs: Most Recent Vital Signs Temp Pulse Resp BP Pulse Ox 36.4 C L 65 20 143/68 H 96 03/15/25 10:15 03/15/25 10:15 03/15/25 10:15 03/15/25 10:15 03/15/25 10:15 Pain Score Most Recent Pain Score: Most Recent Pain Score Pain Level 1 03/15/25 10:15 Assessment Mental Status: Awake (Alert & Oriented to Patient Baseline) Airway and Respiratory Function: Patent airway with normal (patient baseline) respiratory exam Cardiovascular Function: Hemodynamically Stable Hydration Status: Adequately Hydrated Nausea & Vomiting: No Nausea or Vomiting Pain: Pain is tolerable per patient Peripheral Nerve Block: Patient did not receive a nerve block
== END 2025-03-15 12:07 | disposition home or self-care (01) ==
PROVIDERS: PCP Nurse Practitioner Family; Visit Provider Student in an Organized Health Care Education/Training Program
PROC: (CPT 27130; principal; 2025-03-15 07:30)
DX: M16.11 Unilateral primary osteoarthritis, right hip (principal)
CPT/HCPCS: 20985; 27130; 97162; 97530; 73501; C1776; J0690; J1100; J2250; J2371; J2401; J2405; J2598; J2704

== ENCOUNTER 2025-03-28 13:16 | Outpatient (CLI) | payer MEDICARE, SELFPAY ==
--- NOTE | 2025-03-28 10:03 | DI.RAD_ITS ---
Exam(s) XR HIP RT COMPLETE AP PELVIS EXAM: XR HIP RT COMPLETE AP PELVIS INDICATION: 1ST POST OP R OLGA LIDIA. COMPARISON: CR XR PELVIS AP from 12/13/2024 XA XR HIP RT IN OR from 03/15/2025 TECHNIQUE: 2D digital imaging was performed. Two views. FINDINGS: There there is a right hip prosthesis. The alignment is unchanged. There are no abnormal surrounding lucencies DATA REPOSITORY: RADIATION DOSE DELIVERED:
== END 2025-03-28 13:17 | disposition home or self-care (01) ==
LOC: DIORS 13:17
PROVIDERS: PCP Nurse Practitioner Family; Referring Provider Nurse Practitioner Family; Visit Provider Physician Assistant
DX: Z47.1 Aftercare following joint replacement surgery (principal); Z96.641 Presence of right artificial hip joint
CPT/HCPCS: 99024; 73502

== ENCOUNTER 2025-04-01 03:59 | Outpatient (CLI) | payer MEDICARE, SELFPAY ==
[2025-04-01 12:11] LABS: Calculated LDL 101 mg/dL (<100); Cholesterol 167 mg/dL (<200); HDL Cholesterol 46 mg/dL (>or=40); Magnesium 1.6 mg/dL (1.8-2.4); Triglyceride 101 mg/dL (<150)
[2025-04-01 12:48] LABS: Vitamin B12 261 pg/mL (193-986)
[2025-04-01 17:40] LABS: PSA, Screening 2.8 ng/mL (<=6.5)
== END 2025-04-01 04:00 | disposition home or self-care (01) ==
LOC: LBO 03:59
PROVIDERS: PCP Nurse Practitioner Family; Visit Provider Nurse Practitioner Family
DX: I25.10 Atherosclerotic heart disease of native coronary artery without angina pectoris (principal); Z12.5 Encounter for screening for malignant neoplasm of prostate; K21.9 Gastro-esophageal reflux disease without esophagitis; I10 Essential (primary) hypertension
CPT/HCPCS: 36415; 80061; 84153; 82607; 83735

== ENCOUNTER → 2025-04-25 09:37 | Outpatient (BNVA) | payer MEDICARE, SELFPAY | PROVIDERS: PCP Nurse Practitioner Family; Referring Provider Nurse Practitioner Family; Visit Provider Physician Assistant | DX: Z47.1 Aftercare following joint replacement surgery (principal); Z96.641 Presence of right artificial hip joint | CPT/HCPCS: 99024 ==